=== PATIENT | female | born 1970 | race Asian ===

== ENCOUNTER 2020-04-16 14:24 | Outpatient (REF) | payer OTHER, SELFPAY ==
[2020-04-16 14:44] LABS: COVID-19 Test Negative (Negative)
== END 2020-04-16 14:25 | disposition home or self-care (01) ==
LOC: HO.LAB 14:24
PROVIDERS: Visit Provider Internal Medicine
DX: Z20.828 Contact with and (suspected) exposure to other viral communicable diseases (principal)
CPT/HCPCS: 87635

== ENCOUNTER 2020-08-03 13:20 | Emergency (ER) | payer OTHER, SELFPAY ==
[2020-08-03 13:50] VITALS: BP 187/91; PULSE 56; RESP 18; TEMP 36.7; O2SAT 98; BMI 38.7
--- NOTE | 2020-08-03 13:59 | ECG_ITS ---
Test Reason : HIGH BP Blood Pressure : / mmHG Vent. Rate : 063 BPM Atrial Rate : 063 BPM P-R Int : 224 ms QRS Dur : 074 ms QT Int : 420 ms P-R-T Axes : 063 045 039 degrees QTc Int : 429 ms Sinus rhythm with 1st degree A-V block Possible Left atrial enlargement Borderline ECG No previous ECGs available Referred By: Tiffany Goodwin Electronically Signed By:QASIM TERRY MD
--- NOTE | 2020-08-03 14:02 | ED_ITS ---
HPI - General Adult General Chief complaint: General Medical Stated complaint: hi bp Time Seen by Provider: 08/03/20 13:53 Source: patient Mode of arrival: ambulatory Limitations: no limitations History of Present Illness HPI narrative: 50 yo female with HTN - on losartan 50mg, HCTZ 12.5mg used to be on 25mg but loss weight has gained some back last night noted that she felt some head pressure a little foggy but no CP/SOB - BP checked today and it was in 180s no other new medications/supplements complaint: HTN Onset (ago): day(s) (1) Location: head Radiation: non-radiation Severity: mild Quality: dull and constant Pain Consistency: constant Relieving factors: none Exacerbating factors: none Associated symptoms: denies other symptoms Treatments prior to arrival: none Related Data Previous Rx's Medication Instructions Recorded hydrochlorothiazide 12.5 mg tablet 12.5 mg PO DAILY 90 Days #90 tab 06/14/20 hydrochlorothiazide 25 mg PO DAILY #30 tab 08/03/20 Allergies Allergy/AdvReac Type Severity Reaction Status Date / Time lisinopril Allergy Unknown dry cough Verified 02/20/20 00:00 Review of Systems Review of Systems: Constitutional : No Fever, No Chills, No Fatigue ENT/Mouth : No sore throat, No Rhinorrhea Eyes: No Eye Pain, No Swelling, No Redness Cardiovascular : No Chest Pain, No SOB, No Dyspnea on Exertion Respiratory : No Cough, No Sputum Gastrointestinal : No Nausea, No Vomiting, No Diarrhea, No abdominal Pain Genitourinary : No Dysuria, No Urinary Frequency, No Hematuria, Musculoskeletal : No joint pain, No Myalgias, No Joint Swelling Skin : No Skin Lesions, No rash Neuro : No Weakness, No Numbness, No Dizziness, positive Headache All other systems reviewed and are negative [facility] Past Medical History Attestation statement: The following information was validated with the patient. Medical History High blood pressure Social History Social History (Updated 08/03/20 @ 14:11 by Tiffany Goodwin DO) Smoking Status: Never smoker Advance Directives: No Advance Directives Information Provided: Yes Physical Exam Vital Signs: Vital Signs: Last Vital Signs Temp 98.1 F 08/03/20 13:50 Pulse 62 02/01/21 15:51 Resp 16 08/03/20 15:51 BP 165/95 H 08/03/20 15:51 Pulse Ox 98 08/03/20 15:51 Body Mass Index 38.7 Appearance: Alert. Oriented X3. No acute distress. Eyes: Pupils equal, round and reactive to light. ENT: Pharynx normal. Neck: Normal inspection. Neck supple. CVS: Normal heart rate and rhythm. Pulses normal. Respiratory: No respiratory distress. Breath sounds normal. Abdomen: Soft and nontender. Skin: Skin warm and dry. Normal skin color. Normal skin turgor. Extremities: No lower extremity edema. No calf ttp Neuro: Oriented X 3. No motor deficit. No sensory deficit. steady gait, no drift Course Course Course Narrative: BP 165/95 feels better stable for DC Medical Decision Making MDM Narrative Medical decision making narrative: 50 yo female with HTN compliant with medications has a dull headache but no focal deficits not toxic, will obtain EKG, kidney function - if stable will need to increase her HCTZ back to 25mg daily until BP maintained and she sees her PCP, no evidence of end organ dysfunction Lab Data Result diagrams: 08/03/20 14:25 08/03/20 14:25 Labs: Lab Results 08/03/20 08/03/20 Range/Units 14:25 14:25 WBC 7.7 (4.8-10.8) X10*3/uL RBC 4.88 (4.20-5.50) X10*6/uL Hgb 13.7 (12.0-16.0) g/dl Hct 42.1 (37-47) % MCV 86.3 (80-98) fL MCH 28.1 (27.0-33.0) pg MCHC 32.5 (31.0-35.0) g/dl RDW 12.6 (11.0-16.0) % Plt Count 324 (160-400) X10*3/uL MPV 10.3 (9.4-12.3) fL Immature Gran % (Auto) 0.4 (0.0-0.4) % Neut % (Auto) 48.4 (45-73) % Lymph % (Auto) 38.7 (20-40) % Hughes % (Auto) 7.7 (2-11) % Eos % (Auto) 3.4 (0-4) % Baso % (Auto) 1.4 (0-2) % Lymph # (Auto) 3.0 (1.2-4.9) X10*3/uL Hughes # (Auto) 0.6 (0.1-1.2) X10*3/uL Eos # (Auto) 0.3 (0.0-0.4) X10*3/uL Baso # (Auto) 0.1 (0.0-0.2) X10*3/uL Abs Immat Gran (auto) 0.03 (0.00-0.03) X10*3/uL Absolute Neuts (auto) 3.7 (2.0-8.3) X10*3/uL Absolute Nucleated RBC 0.000 (0.0-0.012) X10*3/uL Nucleated RBC % (auto) 0.0 (0.0-0.2) /100WBC Sodium 138 (135-145) mmol/L Potassium 4.3 (3.3-5.1) mmol/L Chloride 103 (96-108) mmol/L Carbon Dioxide 29 (22-29) mmol/L Anion Gap 10 L (12-20) BUN 13 (9-16) mg/dL Creatinine 0.70 (0.5-1.4) mg/dL Estim Creat Clear Calc 79.7 Estimated GFR > 60 Random Glucose 108 (60-115) mg/dL Calcium 9.0 (8.4-10.2) mg/dL ECG Data Attestation: I personally reviewed and interpreted this ECG as follows: Interpretation: Rate: 63 Rhythm: NSR 1st degree AVB [place]: normal Normal P waves. Normal LOC. Normal QRS complex. ST T wave : normal no GILMAR qTC: normal prior studies: no acute ischemia The study has been interpreted contemporaneously by me. . Discharge Plan Discharge Clinical Impression: HTN (hypertension) Patient Disposition: Home, Self-Care Instructions: Chronic Hypertension (ED) Additional Instructions: return to ED for any worsening symptoms or concerns Prescriptions: New hydrochlorothiazide 25 mg tablet 25 mg PO DAILY Qty: 30 RF: 0 No Action hydrochlorothiazide 12.5 mg tablet 12.5 mg PO DAILY 90 Days Qty: 90 RF: 3 Referrals: Eve Larsen MD [Primary Care Provider] - 2 days (if not better) Stand Alone Forms: Work/School Release
[2020-08-03 14:41] LABS: MANUAL DIFF FLAG NO
[2020-08-03 14:42] LABS: Basophils Absolute Auto 0.1 X10*3/uL (0.0-0.2); Basophils Percent Auto 1.4 % (0-2); Eosinophils Absolute Auto 0.3 X10*3/uL (0.0-0.4); Eosinophils Percent Auto 3.4 % (0-4); Hematocrit 42.1 % (37-47); Hemoglobin 13.7 g/dl (12.0-16.0); Imm Gran Abs Auto 0.03 X10*3/uL (0.00-0.03); Imm Gran Pct Auto 0.4 % (0.0-0.4); Lymphocytes Percent Auto 38.7 % (20-40); Mean Corpuscular HGB Conc 32.5 g/dl (31.0-35.0); Mean Corpuscular Hemoglobin 28.1 pg (27.0-33.0); Mean Corpuscular Volume 86.3 fL (80-98); Mean Platelet Volume 10.3 fL (9.4-12.3); Monocytes Absolute Auto 0.6 X10*3/uL (0.1-1.2); Monocytes Percent Auto 7.7 % (2-11); Neutrophils Absolute Auto 3.7 X10*3/uL (2.0-8.3); Neutrophils Percent Auto 48.4 % (45-73); Platelet Count 324 X10*3/uL (160-400); Red Blood Count 4.88 X10*6/uL (4.20-5.50); Red Cell Distribution Width 12.6 % (11.0-16.0); White Blood Count 7.7 X10*3/uL (4.8-10.8)
[2020-08-03 15:06] LABS: Anion Gap 10 (12-20); Blood Urea Nitrogen 13 mg/dL (9-16); Carbon Dioxide 29 mmol/L (22-29); Chloride 103 mmol/L (96-108); Creatinine Clr Calc Pharmacy 79.7; Estimated Glomerular Filt Rate > 60; Glucose Random 108 mg/dL (60-115); Potassium 4.3 mmol/L (3.3-5.1); Sodium 138 mmol/L (135-145)
[2020-08-03] MEDS: hydroCHLOROthiazide 12.5 MG TABLET PO (15:17)
[2020-08-03 15:51] VITALS: BP 165/95; PULSE 62; RESP 16; O2SAT 98
== END 2020-08-03 16:02 | disposition home or self-care (01) ==
PROVIDERS: Emergency Provider Emergency Medicine; PCP Internal Medicine
DX: I10 Essential (primary) hypertension (principal)
CPT/HCPCS: 36415; 80048; 85025; 93005; 99283

== ENCOUNTER 2020-09-10 06:24 | Outpatient (REF) | payer OTHER, SELFPAY ==
[2020-09-10 08:07] LABS: Alanine Aminotransferase 11 U/L (0-31); Albumin Level 3.9 g/dL (3.5-5.0); Alkaline Phosphatase 49 U/L (39-117); Anion Gap 12 (12-20); Aspartate Amino Transferase 15 U/L (5-31); Bilirubin Total 0.8 mg/dL (0.0-1.0); Blood Urea Nitrogen 16 mg/dL (9-16); Calcium 8.9 mg/dL (8.4-10.2); Carbon Dioxide 29 mmol/L (22-29); Chloride 102 mmol/L (96-108); Cholesterol 221 mg/dL; Estimated Glomerular Filt Rate > 60; Glucose Fasting 96 mg/dL (60-99); HDL Cholesterol 49 mg/dL; LDL Cholesterol Calculated 128 mg/dl; Potassium 3.4 mmol/L (3.3-5.1); Sodium 140 mmol/L (135-145); Total Protein 6.9 g/dL (6.5-8.0); Triglycerides 224 mg/dL
== END 2020-09-10 06:25 | disposition home or self-care (01) ==
LOC: HO.LAB 06:24
PROVIDERS: PCP Internal Medicine; Visit Provider Internal Medicine
DX: I10 Essential (primary) hypertension (principal); E78.5 Hyperlipidemia, unspecified
CPT/HCPCS: 36415; 80053; 80061

== ENCOUNTER 2021-01-05 13:23 | Outpatient (REF) | payer OTHER, SELFPAY ==
--- NOTE | ~2021-01-05 | MM_ITS ---
EXAMINATION: MM SCREENING DIGITAL BREAST TOMOSYNTHESIS, BILATERAL CLINICAL INFORMATION: Screening. Asymptomatic. The lifetime risk of breast cancer based on the Tyrer-Cuzick Model is 10.6%. COMPARISON: Mammography: December 31, 2019 and studies dating back to March 04, 2014 TECHNIQUE: Digital breast tomosynthesis is performed in both the craniocaudal and mediolateral oblique views along with computer-aided detection (CAD). Synthesized 2D images are generated from the tomosynthesis. FINDINGS: There are scattered areas of fibroglandular density (ACR BI-RADS breast composition Category b). There are no significant masses, abnormal calcifications, or other abnormalities. MM/MM tomosynthesis screening BI IMPRESSION: There are no significant changes from prior study. ASSESSMENT: BI-RADS 1: Negative RECOMMENDATION: Routine annual mammography screening. This patient's information was entered into a reminder system with a target due date for their next mammogram.
== END 2021-01-05 13:24 | disposition home or self-care (01) ==
LOC: HO.MAMMO 13:23
PROVIDERS: PCP Internal Medicine; Visit Provider Internal Medicine
DX: Z12.31 Encounter for screening mammogram for malignant neoplasm of breast (principal)
CPT/HCPCS: 77063; 77067

== ENCOUNTER 2021-01-15 06:20 | Outpatient (REF) | payer OTHER, SELFPAY ==
--- NOTE | 2021-01-15 06:40 | ECG_ITS ---
Test Reason : PRE OP Blood Pressure : / mmHG Vent. Rate : 060 BPM Atrial Rate : 060 BPM P-R Int : 232 ms QRS Dur : 086 ms QT Int : 428 ms P-R-T Axes : 055 036 044 degrees QTc Int : 428 ms Sinus rhythm with 1st degree A-V block Otherwise normal ECG When compared with ECG of 03-AUG-2020 14:17, No significant change was found Referred By: Eve Yousif Electronically Signed By:Jung Corcoran
[2021-01-15 06:43] LABS: MANUAL DIFF FLAG NO
[2021-01-15 06:50] LABS: Basophils Absolute Auto 0.1 X10*3/uL (0.0-0.2); Basophils Percent Auto 1.1 % (0-2); Eosinophils Absolute Auto 0.2 X10*3/uL (0.0-0.4); Eosinophils Percent Auto 2.8 % (0-4); Hematocrit 41.3 % (37-47); Hemoglobin 13.5 g/dl (12.0-16.0); Imm Gran Abs Auto 0.03 X10*3/uL (0.00-0.03); Imm Gran Pct Auto 0.4 % (0.0-0.4); Lymphocytes Absolute Auto 2.2 X10*3/uL (1.2-4.9); Lymphocytes Percent Auto 30.1 % (20-40); Mean Corpuscular HGB Conc 32.7 g/dl (31.0-35.0); Mean Corpuscular Hemoglobin 27.7 pg (27.0-33.0); Mean Corpuscular Volume 84.8 fL (80-98); Mean Platelet Volume 9.8 fL (9.4-12.3); Monocytes Absolute Auto 0.7 X10*3/uL (0.1-1.2); Monocytes Percent Auto 9.6 % (2-11); Neutrophils Absolute Auto 4.1 X10*3/uL (2.0-8.3); Platelet Count 318 X10*3/uL (160-400); Red Blood Count 4.87 X10*6/uL (4.20-5.50); Red Cell Distribution Width 13.5 % (11.0-16.0); White Blood Count 7.4 X10*3/uL (4.8-10.8)
[2021-01-15 07:31] LABS: Alanine Aminotransferase 14 U/L (0-31); Albumin Level 3.7 g/dL (3.5-5.0); Alkaline Phosphatase 50 U/L (39-117); Anion Gap 11 (12-20); Aspartate Amino Transferase 16 U/L (5-31); Bilirubin Total 0.7 mg/dL (0.0-1.0); Blood Urea Nitrogen 14 mg/dL (9-16); Calcium 9.2 mg/dL (8.4-10.2); Carbon Dioxide 28 mmol/L (22-29); Chloride 107 mmol/L (96-108); Cholesterol 184 mg/dL; Estimated Glomerular Filt Rate > 60; Glucose Fasting 96 mg/dL (60-99); HDL Cholesterol 42 mg/dL; LDL Cholesterol Calculated 101 mg/dl; Potassium 3.9 mmol/L (3.3-5.1); Sodium 142 mmol/L (135-145); Total Protein 6.8 g/dL (6.5-8.0); Triglycerides 205 mg/dL
== END 2021-01-15 06:21 | disposition home or self-care (01) ==
LOC: HO.LAB 06:20
PROVIDERS: Visit Provider Internal Medicine
DX: Z01.810 Encounter for preprocedural cardiovascular examination (principal); E78.2 Mixed hyperlipidemia; D64.9 Anemia, unspecified
CPT/HCPCS: 36415; 80053; 80061; 85025; 93005

== ENCOUNTER → 2021-06-15 09:27 | Outpatient (BNVA) | payer OTHER, SELFPAY | PROVIDERS: PCP Internal Medicine; Visit Provider Advanced Practice Midwife ==

== ENCOUNTER 2021-07-03 08:41 | Outpatient (REF) | payer OTHER, SELFPAY ==
[2021-07-03 09:47] LABS: Binax Internal Control QC Valid; Binax Lot number: 9864; Binax Now Covid-19 Ag Negative (Negative)
== END 2021-07-03 08:42 | disposition home or self-care (01) ==
LOC: HO.LAB 08:41
PROVIDERS: Visit Provider Internal Medicine
DX: Z20.822 Contact with and (suspected) exposure to COVID-19 (principal)
CPT/HCPCS: 36415; C9803

== ENCOUNTER 2021-12-03 06:08 | Outpatient (REF) | payer OTHER, SELFPAY ==
[2021-12-03 07:49] LABS: Alanine Aminotransferase 26 U/L (0-31); Albumin Level 3.8 g/dL (3.5-5.0); Alkaline Phosphatase 56 U/L (39-117); Anion Gap 13 (12-20); Aspartate Amino Transferase 19 U/L (5-31); Bilirubin Total 0.4 mg/dL (0.0-1.0); Blood Urea Nitrogen 17 mg/dL (9-16); Calcium 9.5 mg/dL (8.4-10.2); Carbon Dioxide 25 mmol/L (22-29); Chloride 104 mmol/L (96-108); Cholesterol 206 mg/dL; Estimated Glomerular Filt Rate > 60; Glucose Fasting 107 mg/dL (60-99); HDL Cholesterol 39 mg/dL; LDL Cholesterol Calculated 131 mg/dl; Potassium 4.1 mmol/L (3.3-5.1); Sodium 138 mmol/L (135-145); Total Protein 7.2 g/dL (6.5-8.0); Triglycerides 181 mg/dL
[2021-12-03 08:12] LABS: Thyroid Stimulating Hormone 4.07 uIU/mL (0.32-4.0)
[2021-12-07 14:56] LABS: Vitamin D 25-OH, D2 <4 ng/mL; Vitamin D 25-OH, D3 40 ng/mL; Vitamin D 25-OH, Total 40 ng/mL (30-100)
== END 2021-12-03 06:09 | disposition home or self-care (01) ==
LOC: HO.LAB 06:08
PROVIDERS: PCP Internal Medicine; Visit Provider Internal Medicine
DX: E55.9 Vitamin D deficiency, unspecified (principal); E66.9 Obesity, unspecified; E78.2 Mixed hyperlipidemia
CPT/HCPCS: 36415; 80053; 80061; 82306; 84443

== ENCOUNTER 2022-01-06 13:35 | Outpatient (REF) | payer OTHER, SELFPAY ==
--- NOTE | ~2022-01-06 | MM_ITS ---
EXAMINATION: MM SCREENING DIGITAL BREAST TOMOSYNTHESIS, BILATERAL CLINICAL INFORMATION: Screening. Asymptomatic. The lifetime risk of breast cancer based on the Tyrer-Cuzick Model is 15%. COMPARISON: Mammography: 01/05/2021, 12/31/2019, 11/01/2018 TECHNIQUE: Digital breast tomosynthesis is performed in both the craniocaudal and mediolateral oblique views along with computer-aided detection (CAD). Synthesized 2D images are generated from the tomosynthesis. FINDINGS: There are scattered areas of fibroglandular density (ACR BI-RADS breast composition Category b). There are no significant masses, abnormal calcifications, or other abnormalities. Parenchymal pattern is similar to prior exams. There is fine fibronodular pattern similar to prior studies. No developing density. The axilla and skin contours are unremarkable. MM/MM tomosynthesis screening BI IMPRESSION: No mammographic evidence of malignancy. ASSESSMENT: BI-RADS 2: Benign RECOMMENDATION: Routine annual mammography screening. This patient's information was entered into a reminder system with a target due date for their next mammogram.
== END 2022-01-06 13:36 | disposition home or self-care (01) ==
LOC: HO.MAMMO 13:35
PROVIDERS: Visit Provider Internal Medicine
DX: Z12.31 Encounter for screening mammogram for malignant neoplasm of breast (principal)
CPT/HCPCS: 77063; 77067

== ENCOUNTER 2022-04-21 06:21 | Outpatient (REF) | payer OTHER, SELFPAY ==
[2022-04-21 06:54] LABS: MANUAL DIFF FLAG NO
[2022-04-21 07:32] LABS: Basophils Absolute Auto 0.1 X10*3/uL (0.0-0.2); Basophils Percent Auto 1.1 % (0-2); Eosinophils Absolute Auto 0.2 X10*3/uL (0.0-0.4); Eosinophils Percent Auto 2.6 % (0-4); Hematocrit 43.4 % (37.0-47.0); Hemoglobin 14.4 g/dl (12.0-16.0); Imm Gran Abs Auto 0.05 X10*3/uL (0.00-0.03); Imm Gran Pct Auto 0.5 % (0.0-0.4); Lymphocytes Absolute Auto 2.6 X10*3/uL (1.2-4.9); Lymphocytes Percent Auto 28.1 % (20-40); Mean Corpuscular HGB Conc 33.2 g/dl (31.0-35.0); Mean Corpuscular Hemoglobin 28.1 pg (27.0-33.0); Mean Corpuscular Volume 84.6 fL (80.0-98.0); Mean Platelet Volume 9.9 fL (9.4-12.3); Monocytes Absolute Auto 0.7 X10*3/uL (0.1-1.2); Monocytes Percent Auto 7.3 % (2-11); Neutrophils Absolute Auto 5.6 x10*3/uL (2.0-8.3); Neutrophils Percent Auto 60.4 % (45-73); Platelet Count 310 X10*3/uL (160-400); Red Blood Count 5.13 X10*6/uL (4.20-5.50); White Blood Count 9.3 X10*3/uL (4.8-10.8)
[2022-04-21 07:58] LABS: Alanine Aminotransferase 21 U/L (0-31); Albumin Level 3.8 g/dL (3.5-5.0); Alkaline Phosphatase 54 U/L (39-117); Anion Gap 13 (12-20); Aspartate Amino Transferase 16 U/L (5-31); Bilirubin Total 0.6 mg/dL (0.0-1.0); Blood Urea Nitrogen 15 mg/dL (9-16); Calcium 9.4 mg/dL (8.4-10.2); Carbon Dioxide 28 mmol/L (22-29); Chloride 104 mmol/L (96-108); Cholesterol 217 mg/dL; Estimated Glomerular Filt Rate > 60; Glucose Fasting 107 mg/dL (60-99); HDL Cholesterol 46 mg/dL; LDL Cholesterol Calculated 138 mg/dl; Potassium 4.1 mmol/L (3.3-5.1); Sodium 141 mmol/L (135-145); Total Protein 6.9 g/dL (6.5-8.0); Triglycerides 167 mg/dL
[2022-04-23 06:12] LABS: Thyroid Peroxidase Antibodies <1 IU/mL (<9)
[2022-04-25 13:03] LABS: Thyroglobulin Antibodies 12 IU/mL (< or = 1)
== END 2022-04-21 06:22 | disposition home or self-care (01) ==
LOC: HO.LAB 06:21
PROVIDERS: PCP Internal Medicine; Visit Provider Internal Medicine
DX: N92.1 Excessive and frequent menstruation with irregular cycle (principal); R79.89 Other specified abnormal findings of blood chemistry; E78.2 Mixed hyperlipidemia
CPT/HCPCS: 36415; 80053; 80061; 84439; 84443; 85025; 86376; 86800

== ENCOUNTER 2022-08-09 06:33 | Outpatient (REF) | payer OTHER, SELFPAY ==
[2022-08-09 08:12] LABS: Alanine Aminotransferase 17 U/L (0-31); Albumin Level 3.7 g/dL (3.5-5.0); Alkaline Phosphatase 52 U/L (39-117); Anion Gap 17 (12-20); Aspartate Amino Transferase 15 U/L (5-31); Bilirubin Total 0.8 mg/dL (0.0-1.0); Blood Urea Nitrogen 18 mg/dL (9-16); Calcium 9.3 mg/dL (8.4-10.2); Carbon Dioxide 23 mmol/L (22-29); Chloride 105 mmol/L (96-108); Cholesterol 199 mg/dL; Estimated Glomerular Filt Rate > 60; Glucose Fasting 100 mg/dL (60-99); HDL Cholesterol 42 mg/dL; LDL Cholesterol Calculated 122 mg/dl; Potassium 3.9 mmol/L (3.3-5.1); Sodium 141 mmol/L (135-145); Total Protein 6.6 g/dL (6.5-8.0); Triglycerides 176 mg/dL
[2022-08-09 08:28] LABS: Free T4 (Free Thyroxine) 1.09 ng/dL (0.71-1.85); Thyroid Stimulating Hormone 3.67 uIU/mL (0.32-4.0)
== END 2022-08-09 06:34 | disposition home or self-care (01) ==
LOC: HO.LAB 06:33
PROVIDERS: PCP Internal Medicine; Visit Provider Internal Medicine
DX: R79.89 Other specified abnormal findings of blood chemistry (principal); E78.5 Hyperlipidemia, unspecified; I10 Essential (primary) hypertension
CPT/HCPCS: 36415; 80053; 80061; 84439; 84443

== ENCOUNTER 2022-08-19 08:12 | Outpatient (REF) | payer OTHER, SELFPAY ==
[2022-08-20 12:25] LABS: BV Int Neg Control Negative (Negative); BV Int Pos Control Positive (Positive)
== END 2022-08-19 08:13 | disposition home or self-care (01) ==
LOC: HO.LNP 08:12
PROVIDERS: PCP Internal Medicine; Visit Provider Advanced Practice Midwife
DX: Z01.419 Encounter for gynecological examination (general) (routine) without abnormal findings (principal); N90.89 Other specified noninflammatory disorders of vulva and perineum
CPT/HCPCS: 87480; 87510; 87660

== ENCOUNTER 2023-01-18 10:35 | Outpatient (REF) | payer OTHER, SELFPAY ==
--- NOTE | ~2023-01-18 | MM_ITS ---
EXAMINATION: MM SCREENING DIGITAL BREAST TOMOSYNTHESIS, BILATERAL CLINICAL INFORMATION: Screening. Asymptomatic. The lifetime risk of breast cancer based on the Tyrer-Cuzick Model is 16.3%. COMPARISON: Mammography: 01/06/2022, 01/05/2021, 12/31/2019, and dating back to 2018. TECHNIQUE: Digital breast tomosynthesis is performed in both the craniocaudal and mediolateral oblique views along with computer-aided detection (CAD). Synthesized 2D images are generated from the tomosynthesis. FINDINGS: There are scattered areas of fibroglandular density (ACR BI-RADS breast composition Category b). There are no suspicious masses, suspicious grouped calcifications, or areas of parenchymal distortion. The parenchymal pattern is unchanged from prior exams. MM/MM tomosynthesis screening BI IMPRESSION: No mammographic evidence of malignancy. ASSESSMENT: BI-RADS BI-RADS 1 - Negative RECOMMENDATION: Routine annual mammography screening. 1 year F/U This examination should not preclude the clinical evaluation of a suspicious palpable abnormality. This patient's information was entered into a reminder system with a target due date for their next mammogram.
== END 2023-01-18 10:36 | disposition home or self-care (01) ==
LOC: HO.MAMMO 10:35
PROVIDERS: PCP Internal Medicine; Visit Provider Internal Medicine
DX: Z12.31 Encounter for screening mammogram for malignant neoplasm of breast (principal)
CPT/HCPCS: 77063; 77067

== ENCOUNTER → 2023-01-18 10:45 | Outpatient (BNV) | payer OTHER, SELFPAY | PROVIDERS: PCP Internal Medicine; Visit Provider Radiology Diagnostic Radiology | DX: Z12.31 Encounter for screening mammogram for malignant neoplasm of breast (principal) | CPT/HCPCS: 77063; 77067 ==

== ENCOUNTER 2023-02-23 15:33 | Outpatient (AMB) | payer OTHER, SELFPAY ==
[2023-02-23 15:38] VITALS: BP 126/80; BMI 40.4
--- NOTE | 2023-02-23 15:38 | A.OFFPC_ITS ---
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 Accompanied by: Self / Same As Patient Allergies lisinopril Allergy (Intermediate, Verified 02/23/23 15:47) dry cough Medication List - Last Reconciled 02/23/23 by Eve Yousif MD clotrimazole-betamethasone 1-0.05 % 1 appl topical BID PRN 7 days hydrochlorothiazide 25 mg PO DAILY 90 days losartan 75 mg (1.5 x 50 mg) PO DAILY 90 days Tobacco use date assessed: 08/17/22 Dental Screening Dental Screen Date: 02/23/23 Did you have a dental visit in the last 12 months?: Yes Did you have a dental problem in the last 6 months where you did not have access to dental care?: No Was dental information given to patient?: Patient has dentist HPI HPI Comments History of Present Illness Details This is a 53-year-old female with hypertension morbid obesity that comes today for follow-up her conditions. Blood pressure stable. She is morbidly obese with a BMI of 40.4 and was advised to diet and exercise to reach BMI goal less than 30. Denies any chest pain or shortness of breath. 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 Griffin Guillermo, Joann Rice, Prem Ram and colleagues, with an educational melissa from [email or web address]. Review of Systems Const All systems reviewed & are unremarkable except as noted in HPI and below Eyes Reports no additional complaints, Denies change in vision and Denies other visual disturbances Card Denies chest pain at rest, Denies chest pain with activity, Denies edema, Denies irregular heart rhythm, Denies claudication, Denies dyspnea, Denies dyspnea on exertion, Denies orthopnea, Denies paroxysmal nocturnal dyspnea and Denies slow heart rate Resp Denies cough, Denies dyspnea and Denies dyspnea on exertion GI Denies abdominal pain, Denies change in bowel habits, Denies excessive flatus, Denies nausea and Denies vomiting Denies urinary incontinence, Denies urinary hesitancy and Denies urinary urgency Musc Denies abnormal gait, Denies atrophy, Denies deformity and Denies limited range of motion Skin/Breast Denies bleeding lesions, Denies changing lesions and Denies rash Neuro Denies abnormal gait and Denies lack of coordination Physical exam (Primary Care) Vital Signs: Last Vital Signs BP 126/80 02/23/23 15:38 BMI result Body Mass Index 40.4 Tobacco/Smoking Status: Tobacco use Status Tobacco use date assessed 08/17/22 02/23/23 15:42 Patient Tobacco Use Status Never used Tobacco 02/23/23 15:42 e-Cigarette/Vaping Use Never Used 02/23/23 15:42 Thrive Assessment: Date of Thrive Assessment Date Thrive assessed 08/17/22 02/23/23 15:42 Eyes General: appearance normal, both eyes and all related structures Eyelids: Yes eyelids normal Conjunctivae: conjunctivae normal Neck Neck: Yes normal visual inspection and Yes supple Resp Effort & Inspection: normal respiratory effort Auscultation: clear to auscultation bilaterally Cardio Jugular venous distension: no JVD Rate: regular rate Rhythm: regular rhythm Heart sounds: S1 normal heart sound present and S2 normal heart sound present Extrem General: Yes full ROM Assessment and Plan Assessment & Plan (1) Essential hypertension: Code(s): I10 - Essential (primary) hypertension Plan: Continue losartan hydrochlorothiazide. Blood pressure goal is equal or less than 130/80. (2) Morbid (severe) obesity due to excess calories: Code(s): E66.01 - Morbid (severe) obesity due to excess calories Plan: Start diet and exercise. BMI goal is less than 30. Orders: Orders Comprehensive [place]. Panel Fast 7 Months I10 - Essential (primary) hypertension Lipid Panel 7 Months E78.5 - Hyperlipidemia, unspecified Free T4 (Free Thyroxine) 7 Months R79.89 - Other specified abnormal findings of blood chemistry Thyroid Stimulating Hormone 7 Months R79.89 - Other specified abnormal findings of blood chemistry Coding Level of Care Code Est Pt Level 3 (83619) Diagnoses Essential hypertension I10 Morbid (severe) obesity due to excess calories E66.01 Time Spent (min) 17
== END 2023-02-23 15:52 | disposition home or self-care (01) ==
PROVIDERS: PCP Internal Medicine; Visit Provider Internal Medicine
DX: I10 Essential (primary) hypertension (principal); E66.01 Morbid (severe) obesity due to excess calories; Z68.41 Body mass index [BMI] 40.0-44.9, adult
CPT/HCPCS: 99213

== ENCOUNTER 2023-08-16 06:19 | Outpatient (REF) | payer OTHER, SELFPAY ==
[2023-08-16 08:48] LABS: Alanine Aminotransferase 13 U/L (0-31); Albumin Level 3.8 g/dL (3.5-5.0); Alkaline Phosphatase 61 U/L (39-117); Anion Gap 12 (12-20); Aspartate Amino Transferase 16 U/L (5-31); Bilirubin Total 0.6 mg/dL (0.0-1.0); Blood Urea Nitrogen 18 mg/dL (9-16); Calcium 9.5 mg/dL (8.4-10.2); Carbon Dioxide 26 mmol/L (22-29); Chloride 107 mmol/L (96-108); Cholesterol 226 mg/dL (<200); Estimated Glomerular Filt Rate > 60; Glucose Fasting 92 mg/dL (60-99); HDL Cholesterol 50 mg/dL (>40); LDL Cholesterol Calculated 143 mg/dL (<100); Potassium 3.6 mmol/L (3.3-5.1); Sodium 141 mmol/L (135-145); Total Protein 7.6 g/dL (6.5-8.0); Triglycerides 169 mg/dL (<150)
[2023-08-16 08:54] LABS: Free T4 (Free Thyroxine) 1.06 ng/dL (0.71-1.85)
== END 2023-08-16 06:20 | disposition home or self-care (01) ==
LOC: HO.LAB 06:19
PROVIDERS: PCP Internal Medicine; Visit Provider Internal Medicine
DX: R79.89 Other specified abnormal findings of blood chemistry (principal); E78.5 Hyperlipidemia, unspecified; I10 Essential (primary) hypertension
CPT/HCPCS: 36415; 80053; 80061; 84439; 84443

== ENCOUNTER 2023-09-05 09:23 | Outpatient (AMB) | payer OTHER, SELFPAY ==
[2023-09-05 09:26] VITALS: BP 124/82; BMI 39.0
--- NOTE | 2023-09-05 09:26 | A.OFFPC_ITS ---
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 Accompanied by: Self / Same As Patient Allergies lisinopril Allergy (Intermediate, Verified 09/05/23 09:35) dry cough Medication List - Last Reconciled 09/05/23 by Eve Yousif MD clotrimazole-betamethasone 1-0.05 % 1 appl topical BID PRN 7 days hydrochlorothiazide 25 mg PO DAILY 90 days losartan 75 mg (1.5 x 50 mg) PO DAILY 90 days Tobacco use date assessed: 09/05/23 Dental Screening Dental Screen Date: 09/05/23 Did you have a dental visit in the last 12 months?: Yes Did you have a dental problem in the last 6 months where you did not have access to dental care?: No Was dental information given to patient?: Patient has dentist HPI HPI Comments History of Present Illness Details This is a 53-year-old female that comes for her physical exam. Last mammogram was December 2022. Last Pap smear was 2019. Last colonoscopy was 2018 and was normal. Labs were discussed and she has elevated cholesterol but her Davidson risk score is 2.1% of having a heart attack or stroke in the next 10 years. No chest pain or shortness of breath. [facility] Medical History (Updated 09/05/23 @ 09:45 by Eve Yousif MD) Morbid (severe) obesity due to excess calories COVID-19 Elevated TSH Obesity (BMI 30-39.9) Sweat gland carcinoma Neoplasm Mixed hyperlipidemia Essential hypertension Surgical History Status post Mohs surgery H/O arthroscopic knee surgery H/O skin graft Family History Father Stroke Heart disease Mother Liver cancer Diabetes mellitus Social History Household Members: Significant Other Housing: House Alcohol intake: never Patient Tobacco Use Status: Never used Tobacco e-Cigarette/Vaping Use: Never Used Second Hand Smoke Exposure: No service: No Current occupational status: employed 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 1. Little interest or pleasure in doing things: not at all 2. Feeling down, depressed, or hopeless: not at all 3. Trouble falling or staying asleep, or sleeping too much: not at all 4. Feeling tired or having little energy: not at all 5. Poor appetite or overeating: not at all 6. Feeling bad about yourself - or that you are a failure or have let yourself or your family down: not at all 7. Trouble concentrating on things, such as reading the newspaper or watching television: not at all 8. Moving or speaking so slowly that other people could have noticed. Or the opposite - being so fidgety or restless that you have been moving around a lot more than usual: not at all 9. Thoughts that you would be better off or of hurting yourself in some way: not at all Total score: 0 Depression Screening Interpretation: Negative Depression Screening Done: Yes 09251 - PHQ-9 Billing: Yes Source: Developed by Drs. Griffin Guillermo, Joann Rice, Prem Ram and colleagues, with an educational melissa from [employer]. Thrive Questionnaire Date Thrive assessed: 09/05/23 I am a: Patient What is your living situation today?: I have a steady place to live Within the past 12 months, did the food you bought not last and you didn't have the money to get more?: Never true Within the past 12 months, did you worry whether your food would run out before you got money to buy more?: Never true Do you have trouble paying for medicines?: No Do you have trouble getting transportation to medical appointments?: No Do you have trouble paying your heating and electricity bill?: No Do you have trouble taking care of your child, family member or friend?: No Do you have trouble with day-to-day activities such as bathing, preparing meals, shopping, managing finances, etc.?: No Are you currently unemployed and looking for a job?: No Are you interested in more education?: No Please select the resources that you would like help with: None Currently or been in a relationship where the following occur: no concerns reported THRIVE Score: 0 AUDIT C Alcohol Use Questionnaire (AUDIT-C) 1. How often do you have a drink containing alcohol?: Never Total Score: 0 JALEN-7 AMB Questionnaire JALEN-7 Date JALEN - 7 assessed: 09/05/23 Feeling nervous, anxious, or on edge: 0 = Not at all Not being able to stop or control worryin = Not at all Worrying too much about different things: 0 = Not at all Trouble relaxin = Not at all Being so restless that it is hard to sit still: 0 = Not at all Becoming easily annoyed or irritable: 0 = Not at all Feeling afraid as if something awful might happen: 0 = Not at all Total JALEN-7 score (0-4 normal; 5-9 mild; 10-14 moderate; 15-21 severe): 0 Source: Developed by Drs. Griffin Guillermo, Joann Rice, Prem Ram and colleagues, with an educational melissa from [employer]. JALEN-7 Assessment Billing JALEN-7 Assessment Tool: JALEN-7 Assessment [id number] Review of Systems Const All systems reviewed & are unremarkable except as noted in HPI and below Eyes Reports no additional complaints, Denies change in vision and Denies other visual disturbances Card Denies chest pain at rest, Denies chest pain with activity, Denies edema, Denies irregular heart rhythm, Denies claudication, Denies dyspnea, Denies dyspnea on exertion, Denies orthopnea, Denies paroxysmal nocturnal dyspnea and Denies slow heart rate Resp Denies cough, Denies dyspnea and Denies dyspnea on exertion GI Denies abdominal pain, Denies change in bowel habits, Denies excessive flatus, Denies nausea and Denies vomiting Denies urinary incontinence, Denies urinary hesitancy and Denies urinary urgency Musc Denies abnormal gait, Denies atrophy, Denies deformity and Denies limited range of motion Skin/Breast Denies bleeding lesions, Denies changing lesions and Denies rash Neuro Denies abnormal gait, Denies behavioral changes, Denies confusion and Denies lack of coordination Psych Denies behavioral changes and Denies confusion Physical exam (Primary Care) Vital Signs: Last Vital Signs BP 124/82 09/05/23 09:26 BMI result Body Mass Index 39.0 Tobacco/Smoking Status: Tobacco use Status Tobacco use date assessed 09/05/23 09/05/23 09:29 Patient Tobacco Use Status Never used Tobacco 09/05/23 09:29 e-Cigarette/Vaping Use Never Used 09/05/23 09:29 PHQ-9: PHQ-9 Score PHQ-9: Total score 0 09/05/23 09:29 Depression Screening Interpretation: Negative Thrive Assessment: Date of Thrive Assessment Date Thrive assessed 09/05/23 09/05/23 09:29 Currently or been in a relationship where the following occur: no concerns reported Const General: No confusion Orientation/consciousness: patient oriented x3 and No confusion HENMT Head: Yes normal to inspection, Yes normocephalic and Yes atraumatic Ears: external ears normal Eyes General: appearance normal, both eyes and all related structures Eyelids: Yes eyelids normal Conjunctivae: conjunctivae normal Neck Neck: Yes normal visual inspection and Yes supple Resp Effort & Inspection: normal respiratory effort Auscultation: clear to auscultation bilaterally Cardio Jugular venous distension: no JVD Rate: regular rate Rhythm: regular rhythm Heart sounds: S1 normal heart sound present and S2 normal heart sound present GI Inspection: Yes normal to inspection Palpation (GI): Soft to palpation and nontender Auscultation: normal bowel sounds Skin General skin exam: no rashes or lesions noted Neuro General: patient oriented x3, no focal motor deficits and No confusion Extrem General: Yes full ROM Psych Appearance: grossly normal Assessment and Plan Assessment & Plan (1) Physical exam: Code(s): Z00.00 - Encounter for general adult medical examination without abnormal findings Plan: Repeat in a year. Coding Level of Care Code Est Pt Prev Care 40-64y(77818) Diagnoses Physical exam Z00.00 Additional Codes JALEN-7 Assessment Billing - JALEN-7 Assessment Tool: JALEN-7 Assessment 84159 ([id number]) Time Spent (min) 31
== END 2023-09-05 09:43 | disposition home or self-care (01) ==
PROVIDERS: PCP Internal Medicine; Visit Provider Internal Medicine
DX: Z00.00 Encounter for general adult medical examination without abnormal findings (principal)
CPT/HCPCS: 99396

== ENCOUNTER 2023-09-19 10:10 | Outpatient (AMB) | payer OTHER, SELFPAY ==
--- NOTE | 2023-09-19 10:20 | A.OFFVIS_ITS ---
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 She is doing well with no concerns. No regular normal menses since March, has light monthly spotting. Attempting to eat a healthy diet with calcium and vitamin D and stays active with exercise. Currently sexually active. Denies any vaginal dryness or irritation. Admits to occasional itching externally and would like a refill on her cream. STI testing offered; she declines. Last pap smear; 2019. Last mammogram; 2022. Colonoscopy is UTD. Denies any family history of ovarian or colon cancer. FH breast cancer-maternal aunt. [facility] Medical History Morbid (severe) obesity due to excess calories COVID-19 Elevated TSH Obesity (BMI 30-39.9) Sweat gland carcinoma Neoplasm Mixed hyperlipidemia Essential hypertension Surgical History Status post Mohs surgery H/O arthroscopic knee surgery H/O skin graft Family History Father Stroke Heart disease Mother Liver cancer Diabetes mellitus Maternal Aunt History of breast cancer Social History Household Members: Significant Other Housing: House Alcohol intake: never Patient Tobacco Use Status: Never used Tobacco e-Cigarette/Vaping Use: Never Used Second Hand Smoke Exposure: No service: No Current occupational status: employed 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[employer] Current occupational exposures/hazards: No Sexual orientation: Straight/Heterosexual Gender identity: Female Cognitive needs: No Hearing needs: No Vision needs: No Female Reproductive History Menstrual Age of Menarche: 7 Date of last menstrual period: 03/17/23 Total pregnancies: 0 Date of last pap smear: 02/21/20 (neg pap and hpv) Date of Mammogram: 01/18/23 (Birad 1) Review of Systems Const All systems reviewed & are unremarkable except as noted in HPI and below Reports as per HPI Eyes Reports no additional complaints ENT Reports no additional complaints Card Reports no additional complaints Resp Reports no additional complaints GI Reports as per HPI and Reports no additional complaints Reports as per HPI Musc Reports no additional complaints Skin/Breast Reports as per HPI Neuro Reports no additional complaints Psych Reports no additional complaints Endo Reports no additional complaints Mode/Lymph Reports no additional complaints Aller/Immun Reports no additional complaints Physical Exam Vital Signs: Last Vital Signs BP 108/66 09/19/23 10:28 BMI result Body Mass Index 39.9 Const General: cooperative, healthy appearing, no acute distress, well developed and alert Orientation/consciousness: patient oriented x3 HEENT Head: Yes normal to inspection Eyes General: appearance normal, both eyes and all related structures Neck Neck: Yes normal visual inspection Thyroid: Thyroid normal Chest Chest palpation & inspection: normal inspection of the chest and other (no puckering, dimpling, peau de orange, retraction, discharge, masses) Breast/axilla inspection: normal inspection of the breasts Breast/axilla palpation: normal palpation of the breasts Resp Effort & Inspection: normal respiratory effort GI Inspection: Yes normal to inspection Palpation (GI): Soft to palpation Rectal Exam - Female: deferred Other: Bilateral labia erythema, no lesions General: Yes bladder normal to palpation External Female Exam: normal external appearance and normal appearance of the urethra Speculum Exam - Vagina: normal appearance of the vagina, normal palpation and normal vaginal discharge Speculum Exam - Cervix: normal appearance of the cervix and normal palpation Bimanual exam- vagina & uterus: normal bimanual exam, normal palpation, uterine size normal, bladder normal to palpation, normal palpation and non-tender Bimanual Exam- Adnexa, other: no masses Skin General skin exam: no rashes or lesions noted Rashes: no rashes Neuro General: patient oriented x3 Cognition (Neuro): normal cognition Extrem General: Yes normal to inspection Psych Attitude: cooperative Thought process: Normal thought process present Assessment & Plan Assessment & Plan (1) Encounter for well woman exam with routine gynecological exam: Code(s): Z01.419 - Encounter for gynecological examination (general) (routine) without abnormal findings Plan Discussed: Current recommendations for pap smears per ASCCP guidelines. Breast awareness, periodic self breast exams and yearly mammogram. Maintain a healthy lifestyle, well balanced diet including Calcium 1,200 mg and Vitamin D 600 IU daily, and routine exercise. Monitor menstrual cycles, report any unscheduled bleeding, bleeding episodes <21 days apart or heavy/prolonged menstrual bleeding. Perimenopause versus menopause, no periods after 12 consecutive months. Call the office for a follow up for any concerns. Patient verbalizes understanding and agrees to the plan of care. She was given opportunity to ask questions and all questions were answered to the best of my ability. RTO in 1 year for annual bankman exam. This note is constructed using voice recognition software. While every effort has been made to ensure accuracy, emotional support teacher errors may have been included. Medications: Refilled clotrimazole-betamethasone 1-0.05 % 1 appl topical BID 7 days PRN 45 grams 0RF itching Coding Level of Care Code Est Pt Prev Care 40-64y(48705) Diagnoses Encounter for well woman exam with routine gynecological exam Z01.419
[2023-09-19 10:28] VITALS: BP 108/66; BMI 39.9
== END 2023-09-19 11:13 | disposition home or self-care (01) ==
PROVIDERS: Visit Provider Advanced Practice Midwife
DX: Z01.419 Encounter for gynecological examination (general) (routine) without abnormal findings (principal)
CPT/HCPCS: 99396

== ENCOUNTER → 2023-09-19 10:10 | Outpatient (BNVA) | payer OTHER, SELFPAY | PROVIDERS: Visit Provider Advanced Practice Midwife ==

== ENCOUNTER 2024-01-24 10:29 | Outpatient (REF) | payer OTHER, SELFPAY | END 2024-01-24 10:30 | disposition home or self-care (01) | LOC: HO.MAMMO 10:29 | PROVIDERS: PCP Physician Assistant; Visit Provider Internal Medicine | DX: Z12.31 Encounter for screening mammogram for malignant neoplasm of breast (principal) | CPT/HCPCS: 77063; 77067 ==

== ENCOUNTER → 2024-01-24 10:45 | Outpatient (BNV) | payer OTHER, SELFPAY | PROVIDERS: PCP Physician Assistant; Visit Provider Radiology Diagnostic Radiology | DX: Z12.31 Encounter for screening mammogram for malignant neoplasm of breast (principal) | CPT/HCPCS: 77063; 77067 ==

== ENCOUNTER 2024-02-07 15:16 | Outpatient (AMB) | payer OTHER, SELFPAY ==
--- NOTE | 2024-02-07 15:25 | A.OFFPC_ITS ---
Vital Signs 02/07/24 15:38 Height 4 ft 9.68 in Weight 175 lb 4 oz BMI 37.0 BP 122/84 Blood Pressure Location Lt brachial Position Sitting Respiration 16 Pulse 65 Pulse Source Pulse Oximeter Temp 98.2 F Temp Source Oral Pulse Oximetry (%) 97 Oxygen Delivery Method Room Air Intake Visit Reasons: Establish Care Intake Note: New patient visit Allergies lisinopril Allergy (Intermediate, Verified 02/07/24 15:36) dry cough Medication List - Last Reconciled 02/07/24 by Dawn Coker PA-C clotrimazole-betamethasone 1-0.05 % 1 appl topical BID PRN 7 days hydrochlorothiazide 25 mg PO DAILY 90 days losartan 75 mg (1.5 x 50 mg) PO DAILY 90 days Tobacco use date assessed: 02/07/24 Dental Screening Dental Screen Date: 02/07/24 Did you have a dental visit in the last 12 months?: Yes Did you have a dental problem in the last 6 months where you did not have access to dental care?: No Was dental information given to patient?: Patient has dentist HPI Establish Care HPI Details Patient is a 53-year-old female who presents today to establish care. She is transferring internally. CV: She has history of hypertension her blood pressure today in the office is 122/84. She is currently on losartan 75 mg and hydrochlorothiazide 25 mg daily. Her last labs did show elevated cholesterol which she states that she is going to be working on with her diet. Endo: Her main concern is her thyroid. She states that it has been underactive for the last few years and everyone in her family has some sort of thyroid disorder. She did have positive antibodies in 2021. She states that she has noticed a hard time losing weight but attributes this to perimenopause and she also has noticed that her hair thins out at times. Mammo: Up-to-date Colonoscopy: Due in 5 years. Pap: Up-to-date, last seen by [facility]oc aadc operations staff officer in August. Bone density: Never had 1 PFS Medical History Morbid (severe) obesity due to excess calories COVID-19 Elevated TSH Obesity (BMI 30-39.9) Sweat gland carcinoma Neoplasm Mixed hyperlipidemia Essential hypertension Surgical History Status post Mohs surgery H/O arthroscopic knee surgery H/O skin graft Family History Father Stroke Heart disease Mother Liver cancer Diabetes mellitus Maternal Aunt History of breast cancer Social History Household Members: Significant Other Housing: House Alcohol intake: never Patient Tobacco Use Status: Never used Tobacco e-Cigarette/Vaping Use: Never Used Second Hand Smoke Exposure: No service: No Current occupational status: employed 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 1. Little interest or pleasure in doing things: not at all 2. Feeling down, depressed, or hopeless: not at all 3. Trouble falling or staying asleep, or sleeping too much: not at all 4. Feeling tired or having little energy: not at all 5. Poor appetite or overeating: not at all 6. Feeling bad about yourself - or that you are a failure or have let yourself or your family down: not at all 7. Trouble concentrating on things, such as reading the newspaper or watching television: not at all 8. Moving or speaking so slowly that other people could have noticed. Or the opposite - being so fidgety or restless that you have been moving around a lot more than usual: not at all 9. Thoughts that you would be better off or of hurting yourself in some way: not at all Total score: 0 Depression Screening Interpretation: Negative Depression Screening Done: Yes 57420 - PHQ-9 Billing: Yes Source: Developed by Drs. Griffin Guillermo, Joann Rice, Prem Ram and colleagues, with an educational melissa from [employer]. Thrive Questionnaire Date Thrive assessed: 02/07/24 I am a: Patient What is your living situation today?: I have a steady place to live Within the past 12 months, did the food you bought not last and you didn't have the money to get more?: Never true Within the past 12 months, did you worry whether your food would run out before you got money to buy more?: Never true Do you have trouble paying for medicines?: No Do you have trouble getting transportation to medical appointments?: No Do you have trouble paying your heating and electricity bill?: No Do you have trouble taking care of your child, family member or friend?: No Do you have trouble with day-to-day activities such as bathing, preparing meals, shopping, managing finances, etc.?: No Are you currently unemployed and looking for a job?: No Are you interested in more education?: No Please select the resources that you would like help with: None Currently or been in a relationship where the following occur: No concerns reported THRIVE Score: 0 AUDIT C Alcohol Use Questionnaire (AUDIT-C) 1. How often do you have a drink containing alcohol?: Monthly or less (only at family functions) 2. How many drinks containing alcohol do you have on a typical day when you are drinking?: 1 or 2 3. How often do you have six or more drinks on one occasion?: Never Total Score: 1 JALEN-7 AMB Questionnaire JALEN-7 Date JALEN - 7 assessed: 02/07/24 Feeling nervous, anxious, or on edge: 0 = Not at all Not being able to stop or control worryin = Not at all Worrying too much about different things: 0 = Not at all Trouble relaxin = Not at all Being so restless that it is hard to sit still: 0 = Not at all Becoming easily annoyed or irritable: 1 = Several days Feeling afraid as if something awful might happen: 0 = Not at all Total JALEN-7 score (0-4 normal; 5-9 mild; 10-14 moderate; 15-21 severe): 1 Source: Developed by Drs. Griffin Guillermo, Joann Rice, Prem Ram and colleagues, with an educational melissa from [employer]. JALEN-7 Assessment Billing JALEN-7 Assessment Tool: JALEN-7 Assessment 78347 Physical exam (Primary Care) Vital Signs: Last Vital Signs Temp 98.2 F 02/07/24 15:38 Pulse 65 02/07/24 15:38 Resp 16 02/07/24 15:38 BP 122/84 02/07/24 15:38 Pulse Ox 97 02/07/24 15:38 Oxygen Delivery Method Room Air 02/07/24 15:38 BMI result Body Mass Index 37.0 Tobacco/Smoking Status: Tobacco use Status Tobacco use date assessed 02/07/24 02/07/24 15:26 Patient Tobacco Use Status Never used Tobacco 02/07/24 15:26 e-Cigarette/Vaping Use Never Used 02/07/24 15:26 PHQ-9: PHQ-9 Score PHQ-9: Total score 0 02/07/24 15:56 Depression Screening Interpretation: Negative Thrive Assessment: Date of Thrive Assessment Date Thrive assessed 02/07/24 02/07/24 15:46 Currently or been in a relationship where the following occur: No concerns reported Results Reviewed Results Reviewed: Laboratory Tests 04/21/22 08/09/22 08/16/23 06:52 06:41 06:25 WBC 9.3 RBC 5.13 Hgb 14.4 Hct 43.4 Plt Count 310 Sodium 141 Potassium 3.6 Chloride 107 Carbon Dioxide 26 Anion Gap 12 BUN 18 H Creatinine 0.77 Estimated GFR > 60 Fasting Glucose 92 Calcium 9.5 AST 16 ALT 13 Alkaline Phosphatase 61 Triglycerides 169 H Cholesterol 226 H LDL Cholesterol, Calc 143 H HDL Cholesterol 50 TSH 4.90 H 3.67 4.30 H Free T4 1.06 Thyroglobulin Antibody 12 H Thyroid Peroxidase Ab <1 Assessment and Plan Assessment & Plan (1) Hypothyroidism: Code(s): E03.9 - Hypothyroidism, unspecified Qualifiers: Hypothyroidism type: unspecified Qualified Code(s): E03.9 - Hypothyroidism, unspecified Plan: We will start on levothyroxine. Reviewed risks and benefits and adverse effects of the medication. We will recheck labs in 6-8 weeks. (2) Mixed hyperlipidemia: Code(s): E78.2 - Mixed hyperlipidemia Plan: We will check lipids in 6 months. Discussed a low-fat diet. (3) Essential hypertension: Code(s): I10 - Essential (primary) hypertension Plan: Continue current regimen Plan Bone density ordered. Orders: Orders 2 Thyroid Peroxidase Antibodies Today E03.9 - Hypothyroidism, unspecified XR DEXA axial skeleton Today Z78.0 - Asymptomatic menopausal state Comprehensive [place]. Panel Fast 6 Months E78.2 - Mixed hyperlipidemia, I10 - Essential (primary) hypertension Lipid Panel 6 Months E78.2 - Mixed hyperlipidemia, I10 - Essential (primary) hypertension Thyroglobulin Antibodies Today E03.9 - Hypothyroidism, unspecified TSH reflex Free T4 Today E03.9 - Hypothyroidism, unspecified Medications: New levothyroxine 25 mcg PO DAILY 90 tabs 1RF Coding Level of Care Code Est Pt Level 4 (07634) Complex EM visit Add On G2211 Diagnoses Hypothyroidism, unspecified type E03.9 Hypothyroidism type: unspecified Mixed hyperlipidemia E78.2 Essential hypertension I10 Additional Codes JALEN-7 Assessment Billing - JALEN-7 Assessment Tool: JALEN-7 Assessment [id number] ([id number])
[2024-02-07 15:38] VITALS: BP 122/84; PULSE 65; RESP 16; TEMP 36.8; O2SAT 97; BMI 37.0
== END 2024-02-07 16:11 | disposition home or self-care (01) ==
PROVIDERS: PCP Physician Assistant; Visit Provider Physician Assistant
DX: E03.9 Hypothyroidism, unspecified (principal); E78.2 Mixed hyperlipidemia; I10 Essential (primary) hypertension
CPT/HCPCS: 99214

== ENCOUNTER 2024-02-29 08:01 | Outpatient (REF) | payer OTHER, SELFPAY ==
--- NOTE | ~2024-02-29 | MM_ITS ---
EXAMINATION: BONE DENSITOMETRY CLINICAL INDICATION: Menopause. COMPARISON: This is the patient's baseline examination. TECHNIQUE: Using a [employer] DXA System (software version: 13.1) manufactured by [employer], dual-energy x-ray absorptiometry was performed of the lumbar spine and left hip. The images are of good technical quality. Summary results are attached. FINDINGS: LEFT FEMUR, NECK: BMD 1.049 g/cm2, Z-score 0.8, T-score 0.1, normal. LEFT FEMUR, TOTAL: BMD 1.268 g/cm2, Z-score 2.4, T-score 2.1, normal. AP SPINE L1-L4: BMD 1.450 g/cm2, Z-score 2.6, T-score 2.2, normal. IDENTIFIED RISK FACTORS: Menopause, low calcium intake, thiazide. HISTORY OF FRACTURE: None listed. MEDICATIONS: None listed. MM/XR DEXA axial skeleton IMPRESSION: 1. DIAGNOSIS: Normal bone density based on the lowest T-score value of 0.1 in the femoral neck applying World Health Organization criteria. 2. 10-YEAR FRACTURE RISK PREDICTION, FRAX: According to the guidelines, FRAX calculation should only be performed on patients in the osteopenia bone density category. Therefore, FRAX was not performed on this patient. 3. Treatment Recommendations: NOF guidelines recommend consideration for treatment in postmenopausal women and men age 50 and older presenting with the following: -A hip or vertebral (clinical or morphometric) fracture. -T-score less than or equal to -2.5 at the femoral neck or spine after appropriate evaluation to exclude secondary causes. -Low bone mass at the hip or spine and a 10-year fracture probability by FRAX of greater than or equal to 3% for hip fracture or greater than or equal to 20% for major osteoporotic fracture based on the [place] adapted WHO algorithm. 4. Other Recommendations: All treatment decisions require clinical judgment and consideration of individual patient factors, including patient preferences, comorbidities, previous drug use, risk factors not captured in the FRAX model (e.g. frailty, falls, vitamin D deficiency, increased bone turnover, interval significant decline in bone density) and possible under or overestimation of fracture risk by FRAX. FUTURE SCAN RECOMMENDATION: People with diagnosed cases of osteoporosis or at high risk for fracture should have regular bone mineral density tests. For patients eligible for Medicare, routine testing is allowed once every 2 years. The testing frequency can be increased to one year for patients who have rapidly progressing disease, those who are receiving or discontinuing medical therapy to restore bone mass, or have additional risk factors. Electronically signed by: Kristopher Driscoll MD 03/05/2024 11:07 AM TIM FELDMAN
== END 2024-02-29 08:02 | disposition home or self-care (01) ==
LOC: HO.MAMMO 08:01
PROVIDERS: PCP Physician Assistant; Visit Provider Physician Assistant
DX: Z13.820 Encounter for screening for osteoporosis (principal); Z78.0 Asymptomatic menopausal state
CPT/HCPCS: 77080

== ENCOUNTER 2024-05-09 06:42 | Outpatient (REF) | payer OTHER, SELFPAY ==
[2024-05-09 08:09] LABS: TSH reflex Free T4 2.04 uIU/mL (0.32-4.0)
[2024-05-10 12:52] LABS: Thyroglobulin Antibodies 12 IU/mL (< or = 1); Thyroid Peroxidase Antibodies <1 IU/mL (<9)
== END 2024-05-09 06:43 | disposition home or self-care (01) ==
LOC: HO.LAB 06:42
PROVIDERS: PCP Physician Assistant; Visit Provider Physician Assistant
DX: E03.9 Hypothyroidism, unspecified (principal)
CPT/HCPCS: 36415; 84443; 86376; 86800

== ENCOUNTER 2024-05-29 09:35 | Outpatient (AMB) | payer OTHER, SELFPAY ==
--- NOTE | 2024-05-29 09:59 | MHC.PC.OV ---
Vital Signs 05/29/24 10:09 Height 4 ft 9.68 in Weight 178 lb 2 oz BMI 37.6 BP 106/72 Blood Pressure Location Lt brachial Position Sitting Pulse 67 Pulse Source Pulse Oximeter Pulse Oximetry (%) 97 Oxygen Delivery Method Room Air Intake Visit Reasons: follow up thyroid Intake Note: Follow up Ccna Required: No Allergies lisinopril Allergy (Intermediate, Verified 05/29/24 10:00) dry cough Medication List - Last Reconciled 05/29/24 by Dawn Coker PA-C clotrimazole-betamethasone 1-0.05 % 1 appl topical BID PRN 7 days hydrochlorothiazide 25 mg PO DAILY 90 days levothyroxine 25 mcg PO DAILY losartan 75 mg (1.5 x 50 mg) PO DAILY 90 days Tobacco use date assessed: 02/07/24 Dental Screening Dental Screen Date: 02/07/24 HPI follow up thyroid HPI Details Patient is a 53-year-old female who presents today for a follow up. She has no acute concerns today. CV: She has history of hypertension her blood pressure today in the office is 106/72. She is currently on losartan 75 mg and hydrochlorothiazide 25 mg daily. Her last labs did show elevated cholesterol which she states that she is going to be working on with her diet. She exercises at the gym and eats overall healthy. Endo: On levothyroxine 25 mcg. Last TSH was WNL. 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 But for the last month she has had about 3 weeks of bleeding. She is not having any cramping. No abdominal pain or bloating. Does not have an appointment with her dolly pusher until August. Mammo: Up-to-date Colonoscopy: Due in 5 years. 2028 Pap: Up-to-date, last seen by journeyman power plant operator in August. Bone density: Normal-2023 [facility] Medical History (Updated 05/29/24 @ 10:36 by Dawn Coker PA-C) Morbid (severe) obesity due to excess calories COVID-19 Elevated TSH Obesity (BMI 30-39.9) Sweat gland carcinoma Neoplasm Mixed hyperlipidemia Essential hypertension Surgical History Status post Mohs surgery H/O arthroscopic knee surgery H/O skin graft Family History Father Stroke Heart disease Mother Liver cancer Diabetes mellitus Maternal Aunt History of breast cancer Social History (Updated 05/29/24 @ 10:03 by Anju Kohler CMA) Household Members: Significant Other Housing: House Alcohol intake: former Patient Tobacco Use Status: Never used Tobacco e-Cigarette/Vaping Use: Never Used Second Hand Smoke Exposure: No service: No Current occupational status: employed 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 1. Little interest or pleasure in doing things: not at all 2. Feeling down, depressed, or hopeless: not at all 3. Trouble falling or staying asleep, or sleeping too much: not at all 4. Feeling tired or having little energy: not at all 5. Poor appetite or overeating: not at all 6. Feeling bad about yourself - or that you are a failure or have let yourself or your family down: not at all 7. Trouble concentrating on things, such as reading the newspaper or watching television: not at all 8. Moving or speaking so slowly that other people could have noticed. Or the opposite - being so fidgety or restless that you have been moving around a lot more than usual: not at all 9. Thoughts that you would be better off or of hurting yourself in some way: not at all Total score: 0 Source: Developed by Drs. Griffin Guillermo, Joann Rice, Prem Ram and colleagues, with an educational melissa from [email or web address]. Thrive Questionnaire Date Thrive assessed: 05/22/24 I am a: Patient What is your living situation today?: I have a steady place to live Within the past 12 months, did the food you bought not last and you didn't have the money to get more?: Never true Within the past 12 months, did you worry whether your food would run out before you got money to buy more?: Never true Do you have trouble paying for medicines?: No Do you have trouble getting transportation to medical appointments?: No Do you have trouble paying your heating and electricity bill?: No Do you have trouble taking care of your child, family member or friend?: No Do you have trouble with day-to-day activities such as bathing, preparing meals, shopping, managing finances, etc.?: No Are you currently unemployed and looking for a job?: No Are you interested in more education?: No Please select the resources that you would like help with: None Currently or been in a relationship where the following occur: No concerns reported THRIVE Score: 0 AUDIT C Alcohol Use Questionnaire (AUDIT-C) 1. How often do you have a drink containing alcohol?: Monthly or less 2. How many drinks containing alcohol do you have on a typical day when you are drinking?: 1 or 2 3. How often do you have six or more drinks on one occasion?: Never Total Score: 1 JALEN-7 AMB Questionnaire JALEN-7 Date JALEN - 7 assessed: 02/07/24 Feeling nervous, anxious, or on edge: 0 = Not at all Not being able to stop or control worryin = Not at all Worrying too much about different things: 0 = Not at all Trouble relaxin = Not at all Being so restless that it is hard to sit still: 0 = Not at all Becoming easily annoyed or irritable: 0 = Not at all Feeling afraid as if something awful might happen: 0 = Not at all Total JALEN-7 score (0-4 normal; 5-9 mild; 10-14 moderate; 15-21 severe): 0 Source: Developed by Drs. Griffin Guillermo, Joann Rice, Prem Ram and colleagues, with an educational melissa from [email or web address]. Physical exam (Primary Care) Vital Signs: Last Vital Signs Pulse 67 05/29/24 10:09 BP 106/72 05/29/24 10:09 Pulse Ox 97 05/29/24 10:09 Oxygen Delivery Method Room Air 05/29/24 10:09 BMI result Body Mass Index 37.6 Tobacco/Smoking Status: Tobacco use Status Tobacco use date assessed 02/07/24 05/29/24 10:07 Patient Tobacco Use Status Never used Tobacco 05/29/24 10:07 e-Cigarette/Vaping Use Never Used 05/29/24 10:07 PHQ-9: PHQ-9 Score PHQ-9: Total score 0 05/29/24 10:19 Thrive Assessment: Date of Thrive Assessment Date Thrive assessed 05/22/24 05/29/24 10:07 Currently or been in a relationship where the following occur: No concerns reported Const Orientation/consciousness: patient oriented x3 HENMT Ears: hearing grossly normal bilaterally Neck Thyroid: Thyroid normal Lymphatic: no lymphadenopathy noted Resp Auscultation: clear to auscultation bilaterally Cardio Rate: regular rate Rhythm: regular rhythm Heart sounds: S1 normal heart sound present and S2 normal heart sound present GI Inspection: Yes normal to inspection Palpation (GI): Soft to palpation and Other GI palpation findings present (nontender, no cva tenderness) Auscultation: normoactive bowel sounds Rectal Exam - Female: deferred Skin General skin exam: no rashes or lesions noted Neuro General: patient oriented x3, gait normal and no focal motor deficits Coding Level of Care Code Est Pt Level 4 (93567) Complex EM visit Add On G2211 Diagnoses Abnormal perimenopausal bleeding N92.4 Essential hypertension I10 Mixed hyperlipidemia E78.2 Hypothyroidism, unspecified type E03.9 Hypothyroidism type: unspecified Assessment & Plan Assessment & Plan (1) Abnormal perimenopausal bleeding: Code(s): N92.4 - Excessive bleeding in the premenopausal period Category: Medical Plan: Ultrasound ordered. Advised to contact journeyman power plant operator (2) Essential hypertension: Code(s): I10 - Essential (primary) hypertension Category: Medical Plan: WNL. Continue current regimen (3) Mixed hyperlipidemia: Code(s): E78.2 - Mixed hyperlipidemia Category: Medical Plan: We will check lipids and CMP. (4) Hypothyroidism: Code(s): E03.9 - Hypothyroidism, unspecified Category: Medical Qualifiers: Hypothyroidism type: unspecified Qualified Code(s): E03.9 - Hypothyroidism, unspecified Plan: Continue current regimen. Orders: Orders Complete Blood Count Auto Diff Today E03.9 - Hypothyroidism, unspecified, E78.2 - Mixed hyperlipidemia, I10 - Essential (primary) hypertension, N92.4 - Excessive bleeding in the premenopausal period TSH reflex Free T4 Today E03.9 - Hypothyroidism, unspecified, E78.2 - Mixed hyperlipidemia, I10 - Essential (primary) hypertension, N92.4 - Excessive bleeding in the premenopausal period US pelvic and transvaginal Today N92.4 - Excessive bleeding in the premenopausal period Comprehensive [place]. Panel Fast Today E03.9 - Hypothyroidism, unspecified, E78.2 - Mixed hyperlipidemia, I10 - Essential (primary) hypertension, N92.4 - Excessive bleeding in the premenopausal period Lipid Panel Today E03.9 - Hypothyroidism, unspecified, E78.2 - Mixed hyperlipidemia, I10 - Essential (primary) hypertension, N92.4 - Excessive bleeding in the premenopausal period
[2024-05-29 10:09] VITALS: BP 106/72; PULSE 67; O2SAT 97; BMI 37.6
== END 2024-05-29 10:42 | disposition home or self-care (01) ==
PROVIDERS: PCP Physician Assistant; Visit Provider Physician Assistant
DX: N92.4 Excessive bleeding in the premenopausal period (principal); I10 Essential (primary) hypertension; E78.2 Mixed hyperlipidemia; E03.9 Hypothyroidism, unspecified

== ENCOUNTER → 2024-05-29 09:35 | Outpatient (BNVA) | payer OTHER, SELFPAY | PROVIDERS: PCP Physician Assistant; Visit Provider Physician Assistant ==

== ENCOUNTER 2024-06-05 14:23 | Outpatient (REF) | payer OTHER, SELFPAY | END 2024-06-05 14:24 | disposition home or self-care (01) | LOC: HO.US 14:23 | PROVIDERS: PCP Physician Assistant; Visit Provider Physician Assistant | DX: N92.4 Excessive bleeding in the premenopausal period (principal) | CPT/HCPCS: 76830; 76856 ==

== ENCOUNTER 2024-07-09 10:30 | Outpatient (REF) | payer OTHER, SELFPAY ==
[2024-07-10 21:03] LABS: Follicle Stimulating Hormone 24.9 mIU/mL
== END 2024-07-09 10:31 | disposition home or self-care (01) ==
LOC: HO.LAB 10:30
PROVIDERS: PCP Physician Assistant; Visit Provider Advanced Practice Midwife
DX: N92.4 Excessive bleeding in the premenopausal period (principal); N83.291 Other ovarian cyst, right side
CPT/HCPCS: 36415; 83001

== ENCOUNTER 2024-07-09 10:30 | Outpatient (AMB) | payer OTHER, SELFPAY ==
--- NOTE | 2024-07-09 10:32 | A.OFFVIS_ITS ---
Intake Visit Reasons: follow up in care School Bus Driver/Custodian: School Bus Driver/Custodian Present (Caron) Accompanied by: Self / Same As Patient Allergies lisinopril Allergy (Intermediate, Verified 07/09/24 10:32) dry cough Is last menstrual period known: Yes HPI Comments Details: * Patient is here today to discuss her ultrasound results and plan of care, referred from her PCP to follow up on her ultrasound due to abnormal findings. She admits to having irregular bleeding episodes throughout the last several months. She denies any hot flashes. [facility] Medical History (Updated 05/29/24 @ 10:36 by Dawn Coker PA-C) Morbid (severe) obesity due to excess calories COVID-19 Elevated TSH Obesity (BMI 30-39.9) Sweat gland carcinoma Neoplasm Mixed hyperlipidemia Essential hypertension Surgical History Status post Mohs surgery H/O arthroscopic knee surgery H/O skin graft Family History Father Stroke Heart disease Mother Liver cancer Diabetes mellitus Maternal Aunt History of breast cancer Social History (Updated 05/29/24 @ 10:03 by Anju Kohler CMA) Household Members: Significant Other Housing: House Alcohol intake: former Patient Tobacco Use Status: Never used Tobacco e-Cigarette/Vaping Use: Never Used Second Hand Smoke Exposure: No service: No Current occupational status: employed 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[employer] Current occupational exposures/hazards: No Sexual orientation: Straight/Heterosexual Gender identity: Female Cognitive needs: No Hearing needs: No Vision needs: No Female Reproductive History Menstrual Age of Menarche: 7 Review of Systems Const All systems reviewed & are unremarkable except as noted in HPI and below Endo Reports no additional complaints Physical Exam Const General: cooperative, healthy appearing and no acute distress Psych Appearance: well kempt Attitude: cooperative Thought process: Normal thought process present Results Reviewed Results Reviewed: [address] [address] Ultrasound Report Signed Patient: Viral Woods MR#: [id number] : 1970 Acct:[id number] Age/Sex: 54 / F ADM Date: 06/05/24 Loc: HO. Attending Dr: Dawn Coker PA-C Ordering Physician: Dawn Coker Date of Service: 06/05/24 Procedure(s): US pelvic and transvaginal Accession Number(s): [id number] cc: Dawn Coker~ EXAMINATION: US PELVIS CLINICAL INFORMATION: Excessive bleeding, postmenopausal bleeding, spotting for 3 weeks, no previous imaging, patient denies pain. COMPARISON: None available. TECHNIQUE: Ultrasound of the pelvis is performed using both transabdominal and transvaginal transducers along with Doppler. Transvaginal imaging is performed due to inadequate visualization transabdominally. FINDINGS: Anteverted uterus measures 7.7 x 4.8 x 5.4 cm. LEFT ovary not visualized. Limited visualization due to bowel gas and body habitus. RIGHT ovary measures 1.9 x 0.9 x 2.5 cm, volume 2.3 mL. 0.7 x 0.5 x 0.7 cm RIGHT ovarian cyst. A 1.9 x 1.2 x 1.3 cm RIGHT adnexal cyst. No significant free fluid. Nabothian cysts in the cervix. Endometrium appears abnormal for a patient with postmenopausal bleeding with endometrial thickness of 19 mm and heterogeneous appearance with tiny cystic spaces. Gynecologic consultation recommended to determine further management including possible biopsy. US/US pelvic and transvaginal IMPRESSION: 1. Endometrium appears abnormal for a patient with postmenopausal bleeding with endometrial thickness of 19 mm and heterogeneous appearance with tiny cystic spaces. Gynecologic consultation recommended to determine further management including possible biopsy. 2. LEFT ovary not visualized. Limited visualization due to bowel gas and body habitus. 3. A 0.7 cm RIGHT ovarian cyst. 4. A 1.9 cm RIGHT adnexal cyst. This study was presented to me on July 08, 2023 for interpretation. PSA staff will provide results to referring provider at this time. Electronically signed by: Tammy Vargas MD 07/08/2024 06:01 AM [facility] Dictated By: Tammy Vargas MD Signed By: <Electronically signed by Tammy Vargas MD in OV> 07/08/24 0601 DD/ 1438 TD/TT: 06/05/24 1510 Book Repairer: Assessment & Plan Assessment & Plan (1) Abnormal perimenopausal bleeding: Code(s): N92.4 - Excessive bleeding in the premenopausal period Category: Medical (2) Abnormal finding on ultrasound: Code(s): R93.89 - Abnormal findings on diagnostic imaging of other specified body structures Plan Discussed: Ultrasound findings suggestive of endometrial polyps, recommend her have a hysteroscopy for diagnostics, with a pre consult to be scheduled and discuss the procedure and plan of care. Anticipatory guidance reviewed for hysteroscopy procedure. Perimenopause versus menopause diagnosis. Plan FSH. Annual exam as scheduled through the end of this month. The patient expressed understanding and agreement with the plan of care. All of her questions and concerns were addressed to the best of my ability. This note is constructed using voice recognition software. While every effort h as been made to ensure accuracy, mold cleaning and storage supervisor errors may have been included. Orders: Orders Follicle Stimulating Hormone Today N92.4 - Excessive bleeding in the premenopausal period Coding Level of Care Code Est Pt Level 2 (04924) Diagnoses Abnormal perimenopausal bleeding N92.4 Abnormal finding on ultrasound R93.89
== END 2024-07-09 15:03 | disposition home or self-care (01) ==
LOC: HO.HWS 10:30
PROVIDERS: PCP Physician Assistant; Visit Provider Advanced Practice Midwife
DX: N92.4 Excessive bleeding in the premenopausal period (principal); R93.89 Abnormal findings on diagnostic imaging of other specified body structures
CPT/HCPCS: 99213

== ENCOUNTER 2024-07-15 12:15 | Outpatient (AMB) | payer OTHER, SELFPAY ==
--- NOTE | 2024-07-15 12:27 | A.OFFVIS_ITS ---
Intake Visit Reasons: Hysteroscopy consult Allergies lisinopril Allergy (Intermediate, Verified 07/09/24 10:32) dry cough HPI Comments Details: Presenting referred from Angelina Dove CNM . The patient has been having irregular vaginal bleeding over the last few weeks. Pelvic Ultrasound done in 06/05 read in 07/08/2023 showed the following: IMPRESSION: 1. Endometrium appears abnormal for a patient with postmenopausal bleeding with endometrial thickness of 19 mm and heterogeneous appearance with tiny cystic spaces. Gynecologic consultation recommended to determine further management including possible biopsy. 2. LEFT ovary not visualized. Limited visualization due to bowel gas and body habitus. 3. A 0.7 cm RIGHT ovarian cyst. 4. A 1.9 cm RIGHT adnexal cyst. Last co testing in 03/22 was negative Screening mammogram in 01/23 was BI-RADS 1 Last FSH in 07/27 was 24.9, in the menopausal range PFSH Medical History Morbid (severe) obesity due to excess calories COVID-19 Elevated TSH Obesity (BMI 30-39.9) Sweat gland carcinoma Neoplasm Mixed hyperlipidemia Essential hypertension Surgical History Status post Mohs surgery H/O arthroscopic knee surgery H/O skin graft Family History Father Stroke Heart disease Mother Liver cancer Diabetes mellitus Maternal Aunt History of breast cancer Social History Household Members: Significant Other Housing: House Alcohol intake: former Patient Tobacco Use Status: Never used Tobacco e-Cigarette/Vaping Use: Never Used Second Hand Smoke Exposure: No service: No Current occupational status: employed 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[employer] Current occupational exposures/hazards: No Sexual orientation: Straight/Heterosexual Gender identity: Female Cognitive needs: No Hearing needs: No Vision needs: No Female Reproductive History Menstrual Age of Menarche: 7 Review of Systems Const All systems reviewed & are unremarkable except as noted in HPI and below Reports as per HPI and Reports no additional complaints GI Reports no additional complaints Reports no additional complaints Office Procedures Endometrial Biopsy Details: The patient was counseled regarding the indication and benefits of endometrial sampling to rule out endometrial pathology including not limited to endometrial hyperplasia or endometrial cancer and others; The alternatives (Either do not mary jo vs. hysteroscopy D&C) & the risks were discussed with the patient including but not limited: pain, uterine perforation, bleeding, infection, possible injury to bladder, bowel, ureter, possible need for blood transfusion with all its possible risks. The patient verbalized understanding all questions answered and signed consent. Urine test done in the office was negative The patient was placed into the dorsal lithotomy position; a speculum was inserted in the vagina. Using aseptic technique for the procedure, the cervix was cleansed with Betadine. The anterior lip of the cervix was grasped with a single tooth tenaculum. The uterus was sounded to 7 cm with a 4 mm Pipelle was used. Tissues samples were obtained and placed in formalin, in a patient labeled container and sent to the pathology department. At the end of the procedure, there was minimal bleeding noted The patient tolerated the procedure well and was discharged in good condition with the following instructions: Nothing in the vagina until the bleeding stops. No sex until the bleeding stops, to call if any of the following occurs: fever (>100.4), flu-like symptoms, abdominal pain, heavy bleeding, four smelling vaginal discharge. The patient was instructed to schedule a Follow up appointment in 2 weeks to discuss pathology results of the biopsy and treatment options. This note was generated with a voice recognition program. Some errors may have been overlooked during the review of this note. Sometimes these errors may affect the content or meaning of a given sentence. [id number] Biopsy Results AMB Test Urine AMB Test Urine Negative Last Edit by LYN Alcazar on 07/15/24 12:57 Results Reviewed Results Reviewed: Laboratory Last Values Tst Clinic Negative 07/15/24 12:57 Assessment & Plan Assessment & Plan (1) Abnormal uterine bleeding (AUB): Code(s): N93.9 - Abnormal uterine and vaginal bleeding, unspecified Category: Medical Plan: Discussed with the patient the pelvic ultrasound findings, the endometrial stripe thickenss measured by ultrasound was more than 4mm with abnormal cystic spaces. Recommended to the patient that the next step is an endometrial sampling via hysteroscopy D&C possible polypectomy versus endometrial biopsy to r/o endometrial pathology including hyperplasia or cancer. All the pros and cons risks and benefits of each approach were discussed with the patient, endometrial biopsy being less invasive, office procedure with less sensitivity and inability diagnose a polyp and removal versus hysteroscopy done under anesthesia more invasive more sensitive to endometrial cancer and possibility of diagnosing and endometrial polyp with the possibility of polypectomy. All questions were answered pt verbalized understanding and decided to proceed with endometrial biopsy. EMB done, see procedure note Orders: Orders AMB HCG Urine Test Today N93.9 - Abnormal uterine and vaginal bleeding, unspecified AMB Endometrial Biopsy Today N93.9 - Abnormal uterine and vaginal bleeding, unspecified Coding Level of Care Code Est Pt Level 3 (96532) Procedure Only Diagnoses Abnormal uterine bleeding (AUB) N93.9 CPT Codes Endometrial Biopsy - CPT: 99015-Ndyrjixpzdo Biopsy ([id number])
== END 2024-07-15 13:19 | disposition home or self-care (01) ==
LOC: HO.HWS 12:15
PROVIDERS: PCP Physician Assistant; Visit Provider Obstetrics & Gynecology
DX: N93.9 Abnormal uterine and vaginal bleeding, unspecified (principal)
CPT/HCPCS: 58100; 99213

== ENCOUNTER 2024-07-15 12:15 | Outpatient (REF) | payer OTHER, SELFPAY | END 2024-07-15 12:16 | disposition home or self-care (01) | LOC: HO.LNP 12:15 | PROVIDERS: PCP Physician Assistant; Visit Provider Obstetrics & Gynecology | DX: C54.1 Malignant neoplasm of endometrium (principal); N93.9 Abnormal uterine and vaginal bleeding, unspecified | CPT/HCPCS: 58100; 81025; 88305; 88341; 88342; 88360 ==

== ENCOUNTER 2024-07-29 07:55 | Outpatient (AMB) | payer OTHER, SELFPAY ==
--- NOTE | 2024-07-29 07:56 | MHC.OFFVIS ---
Intake Visit Reasons: EMB follow up per Dr. Vergara Allergies lisinopril Allergy (Intermediate, Verified 07/09/24 10:32) dry cough HPI Comments Details: Presenting post EMB for follow-up. The pathology showed the following: Endometrium, biopsy: Endometrial adenocarcinoma, endometrioid type, FIGO grade 2. See comment. Comment: MSI studies will be addended [facility] Medical History Morbid (severe) obesity due to excess calories COVID-19 Elevated TSH Obesity (BMI 30-39.9) Sweat gland carcinoma Neoplasm Mixed hyperlipidemia Essential hypertension Surgical History Status post Mohs surgery H/O arthroscopic knee surgery H/O skin graft Family History Father Stroke Heart disease Mother Liver cancer Diabetes mellitus Maternal Aunt History of breast cancer Social History Household Members: Significant Other Housing: House Alcohol intake: former Patient Tobacco Use Status: Never used Tobacco e-Cigarette/Vaping Use: Never Used Second Hand Smoke Exposure: No service: No Current occupational status: employed 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[employer] Current occupational exposures/hazards: No Sexual orientation: Straight/Heterosexual Gender identity: Female Cognitive needs: No Hearing needs: No Vision needs: No Female Reproductive History Menstrual Age of Menarche: 7 Review of Systems Const All systems reviewed & are unremarkable except as noted in HPI and below Reports as per HPI and Reports no additional complaints GI Reports no additional complaints Reports no additional complaints Assessment & Plan Assessment & Plan (1) Endometrial adenocarcinoma: Comment: Grade 2 Code(s): C54.1 - Malignant neoplasm of endometrium Category: Medical Plan: Discussed with the patient the pathology results, the recommended surgical staging procedure, and the prognosis. CT scan of abdomen and pelvis with oral contrast, chest x-ray and CA 125 ordered. [facility] referral placed, the patient has an appointment with Dr. Eisenberg on 08/15/2024 at 09:00, the patient is aware. All questions answered, the patient verbalized understanding. Coding Level of Care Code Est Pt Level 3 (87844) Diagnoses Endometrial adenocarcinoma C54.1
== END 2024-07-29 08:17 | disposition home or self-care (01) ==
LOC: HO.HWS 07:55
PROVIDERS: PCP Physician Assistant; Visit Provider Obstetrics & Gynecology
DX: C54.1 Malignant neoplasm of endometrium (principal)
CPT/HCPCS: 99213

== ENCOUNTER 2024-07-29 07:55 | Outpatient (REF) | payer OTHER, SELFPAY ==
--- NOTE | ~2024-07-29 | XR_ITS ---
EXAMINATION: XR CHEST 2 VIEWS HISTORY: C54.1 - Malignant neoplasm of endometrium COMPARISON: There are no prior studies for comparison. FINDINGS: PA and lateral views of the chest are submitted. The lungs are expanded and clear. There is no pleural effusion, pneumothorax, or pulmonary vascular congestion. The heart is normal in size. There is degenerative disc disease of the spine. XR/XR chest 2V IMPRESSION: Clear lungs. Electronically signed by: Griffin Uriostegui MD 07/29/2024 03:26 PM EST
[2024-07-30 09:03] LABS: CA-125 11 U/mL (<35)
== END 2024-07-29 07:56 | disposition home or self-care (01) ==
LOC: HO.XRAY 07:55
PROVIDERS: PCP Physician Assistant; Visit Provider Obstetrics & Gynecology
DX: C54.1 Malignant neoplasm of endometrium (principal)
CPT/HCPCS: 36415; 71046; 86304

== ENCOUNTER → 2024-07-29 13:00 | Outpatient (BNV) | payer OTHER, SELFPAY | PROVIDERS: PCP Physician Assistant; Visit Provider Radiology Diagnostic Radiology | DX: C54.1 Malignant neoplasm of endometrium (principal) | CPT/HCPCS: 71046 ==

== ENCOUNTER → 2024-08-05 11:32 | Outpatient (BNV) | payer OTHER, SELFPAY | PROVIDERS: PCP Physician Assistant; Visit Provider Radiology Diagnostic Radiology | DX: C54.1 Malignant neoplasm of endometrium (principal) | CPT/HCPCS: 74177 ==

== ENCOUNTER 2024-10-31 08:05 | Outpatient (AMB) | payer OTHER, SELFPAY ==
--- NOTE | 2024-10-31 08:09 | AM.OFFWIN_ITS ---
Intake Vital Signs 10/31/24 08:11 Weight 181 lb BP 122/80 Blood Pressure Location Rt brachial Position Sitting Pulse 61 Pulse Source Pulse Oximeter Temp 98.1 F Temp Source Oral Pulse Oximetry (%) 98 Intake Visit Reasons: EP Rash all over face Intake Note: Patient here for rash around right eye and on scalp that started monday. Patient Tobacco Use Status: Never used Tobacco Allergies lisinopril Allergy (Intermediate, Verified 10/31/24 08:11) dry cough Do you need a note to return to daycare/school/sports/work: No HPI HPI Comments History of Present Illness Details History of Present Illness - The patient is a 54-year-old female pr esenting with a skin rash with itching on her nose and upper right cheek. - Rash onset was 4 days ago, initially a ppearing as a small bump, with progression through the week to involve multiple areas, described as dry, raised, and not fluid filled. - Noteworthy is the patient's history of applying triamcinolone cream for hives and skin conditions without significant alleviation of current symptoms. - Possible allergic trigger considered f rom [place], correlated with rash onset. - Reported alleviative measures include the application of cold compresses reducing itch. - The patient also reports past episodes of hives and has received prior vaccinations against shingles. - Minor sinus symptoms led to molar ache earlier in the week, with a possible sinus component considered due to proximity of symptoms. Physical Exam General: Cooperative, healthy appearing, comfortable, no acute distress and well developed Orientation: Patient oriented x3 Limitations: No limitations Head: Normal to inspection Ears: Hearing grossly normal bilaterally Nose: Normal External nose present Face and sinus: Normal facial exam, see below Eyes: Appearance normal, both eyes and all related structures Neck: Normal visual inspection and Yes full ROM Respiratory: Normal respiratory effort and able to speak in complete sentences. Skin: Dry, raised, erythematous patch 1cmx1.25cm on bridge of nose and a smaller patch similar lateral to the right eyebrow. Neuro: Patient oriented x3 Extremities: Normal to inspection [facility] Medical History Morbid (severe) obesity due to excess calories COVID-19 Elevated TSH Obesity (BMI 30-39.9) Sweat gland carcinoma Neoplasm Mixed hyperlipidemia Essential hypertension Surgical History Status post Mohs surgery H/O arthroscopic knee surgery H/O skin graft Family History Father Stroke Heart disease Mother Liver cancer Diabetes mellitus Maternal Aunt History of breast cancer Social History Household Members: Significant Other Housing: House Alcohol intake: former Patient Tobacco Use Status: Never used Tobacco e-Cigarette/Vaping Use: Never Used Second Hand Smoke Exposure: No service: No Current occupational status: employed 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[employer] Current occupational exposures/hazards: No Sexual orientation: Straight/Heterosexual Gender identity: Female Cognitive needs: No Hearing needs: No Vision needs: No Female Reproductive History Menstrual Age of Menarche: 7 Review of Systems Const All systems reviewed & are unremarkable except as noted in HPI and below Physical Exam Vital Signs: Last Vital Signs Temp 98.1 F 10/31/24 08:11 Pulse 61 10/31/24 08:11 BP 122/80 10/31/24 08:11 Pulse Ox 98 10/31/24 08:11 Assessment & Plan Assessment & Plan (1) Eczema: Code(s): L30.9 - Dermatitis, unspecified Qualifiers: Eczema type: intrinsic Qualified Code(s): L20.84 - Intrinsic (allergic) eczema Plan: Likely intrinsic eczema, I recommend initiating treatment with clobetasol cream, highlighting its strong potency and emphasizing careful application to avoid ocular regions. Management combined with an [id number]-[id number] antihistamine to mitigate itchiness. The patient may use cold compresses to alleviate itching further. If no improvement in her symptoms, she should follow up with us for a referral to Dermatology. Patient was informed and verbally consented to the use of an ambient scribe for clinic note documentation during this visit. Medications: New clobetasol 0.05% Do not use on hands face or genitals. Please wash your hands after applying this medication or use gloves 1 appl topical BID 1 week 30 grams 0RF Discontinued clotrimazole-betamethasone 1-0.05 % Discontinued Reason: Patient Completed Course 1 appl topical BID 7 days PRN 45 grams 0RF itching Coding Level of Care Code Est Pt Level 3 (40820) Diagnoses Intrinsic eczema L20.84 Eczema type: intrinsic
[2024-10-31 08:11] VITALS: BP 122/80; PULSE 61; TEMP 36.7; O2SAT 98
== END 2024-10-31 08:44 | disposition home or self-care (01) ==
PROVIDERS: PCP Physician Assistant; Visit Provider Physician Assistant
DX: L20.84 Intrinsic (allergic) eczema (principal)

== ENCOUNTER → 2024-10-31 08:05 | Outpatient (BNVA) | payer OTHER, SELFPAY | PROVIDERS: PCP Physician Assistant; Visit Provider Physician Assistant ==

== ENCOUNTER 2024-11-19 06:23 | Outpatient (REF) | payer OTHER, SELFPAY ==
[2024-11-19 06:40] LABS: MANUAL DIFF FLAG NO
[2024-11-19 07:13] LABS: Basophils Absolute Auto 0.1 X10*3/uL (0.0-0.2); Basophils Percent Auto 1.2 % (0-2); Eosinophils Absolute Auto 0.2 X10*3/uL (0.0-0.4); Eosinophils Percent Auto 2.3 % (0-4); Hematocrit 43.2 % (37.0-47.0); Hemoglobin 14.5 g/dl (12.0-16.0); Imm Gran Abs Auto 0.03 X10*3/uL (0.00-0.03); Imm Gran Pct Auto 0.4 % (0.0-0.4); Lymphocytes Absolute Auto 3.1 X10*3/uL (1.2-4.9); Lymphocytes Percent Auto 36.2 % (20-40); Mean Corpuscular HGB Conc 33.6 g/dl (31.0-35.0); Mean Corpuscular Hemoglobin 28.3 pg (27.0-33.0); Mean Corpuscular Volume 84.4 fL (80.0-98.0); Mean Platelet Volume 10.3 fL (9.4-12.3); Monocytes Absolute Auto 0.6 X10*3/uL (0.1-1.2); Monocytes Percent Auto 6.8 % (2-11); Neutrophils Absolute Auto 4.5 x10*3/uL (2.0-8.3); Neutrophils Percent Auto 53.1 % (45-73); Platelet Count 294 X10*3/uL (160-400); Red Blood Count 5.12 X10*6/uL (4.20-5.50); White Blood Count 8.4 X10*3/uL (4.8-10.8)
[2024-11-19 07:45] LABS: Alanine Aminotransferase 19 U/L (0-31); Albumin Level 3.9 g/dL (3.5-5.0); Alkaline Phosphatase 59 U/L (39-117); Anion Gap 11 (12-20); Aspartate Amino Transferase 21 U/L (5-31); Bilirubin Total 0.7 mg/dL (0.0-1.0); Blood Urea Nitrogen 18 mg/dL (9-16); Calcium 9.5 mg/dL (8.4-10.2); Carbon Dioxide 28 mmol/L (22-29); Chloride 105 mmol/L (96-108); Cholesterol 229 mg/dL (<200); Estimated Glomerular Filt Rate > 60; Glucose Fasting 106 mg/dL (60-99); HDL Cholesterol 46 mg/dL (>40); LDL Cholesterol Calculated 145 mg/dL (<100); Potassium 3.6 mmol/L (3.3-5.1); Sodium 140 mmol/L (135-145); Total Protein 7.3 g/dL (6.5-8.0); Triglycerides 191 mg/dL (<150)
[2024-11-19 08:00] LABS: TSH reflex Free T4 2.99 uIU/mL (0.32-4.0)
== END 2024-11-19 06:24 | disposition home or self-care (01) ==
LOC: HO.LAB 06:23
PROVIDERS: PCP Physician Assistant; Visit Provider Physician Assistant
DX: E78.2 Mixed hyperlipidemia (principal); I10 Essential (primary) hypertension; N92.4 Excessive bleeding in the premenopausal period; E03.9 Hypothyroidism, unspecified
CPT/HCPCS: 36415; 80053; 80061; 84443; 85025

== ENCOUNTER 2024-11-26 06:44 | Outpatient (REF) | payer OTHER, SELFPAY ==
[2024-11-26 07:56] LABS: Alanine Aminotransferase 19 U/L (0-31); Albumin Level 3.9 g/dL (3.5-5.0); Alkaline Phosphatase 52 U/L (39-117); Anion Gap 13 (12-20); Aspartate Amino Transferase 29 U/L (5-31); Bilirubin Total 0.6 mg/dL (0.0-1.0); Blood Urea Nitrogen 18 mg/dL (9-16); Calcium 9.2 mg/dL (8.4-10.2); Carbon Dioxide 26 mmol/L (22-29); Chloride 105 mmol/L (96-108); Cholesterol 211 mg/dL (<200); Estimated Glomerular Filt Rate > 60; Glucose Fasting 102 mg/dL (60-99); HDL Cholesterol 45 mg/dL (>40); LDL Cholesterol Calculated 136 mg/dL (<100); Potassium 3.5 mmol/L (3.3-5.1); Sodium 140 mmol/L (135-145); Total Protein 7.1 g/dL (6.5-8.0); Triglycerides 152 mg/dL (<150)
[2024-11-26 09:00] LABS: Estimated Average Glucose 111 mg/dL; Hemoglobin A1C 135.2339 umol/L; Hemoglobin A1c % 5.5 % (<6.0); Total Hemoglobin (HGBA1C) 3668.4992 umol/L
== END 2024-11-26 06:45 | disposition home or self-care (01) ==
LOC: HO.LAB 06:44
PROVIDERS: PCP Physician Assistant; Visit Provider Physician Assistant
DX: E78.2 Mixed hyperlipidemia (principal); R73.01 Impaired fasting glucose; I10 Essential (primary) hypertension; E03.9 Hypothyroidism, unspecified; N92.4 Excessive bleeding in the premenopausal period
CPT/HCPCS: 36415; 80053; 80061; 83036

== ENCOUNTER 2024-12-26 10:24 | Outpatient (AMB) | payer OTHER, SELFPAY ==
--- NOTE | 2024-12-26 10:34 | MHC.PC.OV ---
Vital Signs 12/26/24 10:38 Height 4 ft 9.64 in Weight 181 lb 8 oz BMI 38.4 BP 106/76 Blood Pressure Location Rt brachial Position Sitting Respiration 12 Pulse 60 Pulse Source Pulse Oximeter Temp 98.2 F Temp Source Oral Pulse Oximetry (%) 97 Oxygen Delivery Method Room Air Intake Visit Reasons: cpe Intake Note: Physical Hotel Dining Room Cashier Required: No Allergies lisinopril Allergy (Intermediate, Verified 12/26/24 10:37) dry cough Medication List - Last Reconciled 12/27/24 by Dawn Coker PA-C clobetasol 0.05% 1 appl topical BID 1 week hydrochlorothiazide 25 mg PO DAILY 90 days levothyroxine 25 mcg PO DAILY losartan 75 mg (1.5 x 50 mg) PO DAILY 90 days Tobacco use date assessed: 12/26/24 Dental Screening Dental Screen Date: 12/26/24 Did you have a dental visit in the last 12 months?: Yes Did you have a dental problem in the last 6 months where you did not have access to dental care?: No Was dental information given to patient?: Patient has dentist HPI cpe HPI Details Patient is a 54-year-old female who presents today for a physical exam. She has no acute concerns today. CV: She has history of hypertension her blood pressure today in the office is 106/72. She is currently on losartan 75 mg and hydrochlorothiazide 25 mg daily. Her last labs did show elevated but improved cholesterol which she states that she is going to be working on with her diet. She exercises at the gym and eats overall healthy. Endo: On levothyroxine 25 mcg. Last TSH was WNL. 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 She is following with OBGYN Oncology. Mammo: Up-to-date Colonoscopy: Due in 5 years. 2028 Pap: S/p recent hysterectomy Bone density: Normal-2023 [facility] Medical History Morbid (severe) obesity due to excess calories COVID-19 Elevated TSH Obesity (BMI 30-39.9) Sweat gland carcinoma Neoplasm Mixed hyperlipidemia Essential hypertension Surgical History Status post Mohs surgery H/O arthroscopic knee surgery H/O skin graft Family History Father Stroke Heart disease Mother Liver cancer Diabetes mellitus Maternal Aunt History of breast cancer Social History (Updated 12/26/24 @ 13:43 by Anju Kohler CMA) Household Members: Significant Other Housing: House Alcohol intake: former Patient Tobacco Use Status: Never used Tobacco e-Cigarette/Vaping Use: Never Used Second Hand Smoke Exposure: No Use of substances other than those prescribed or required for medical reasons: No service: No Current occupational status: employed 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 1. Little interest or pleasure in doing things: not at all 2. Feeling down, depressed, or hopeless: not at all 3. Trouble falling or staying asleep, or sleeping too much: not at all 4. Feeling tired or having little energy: not at all 5. Poor appetite or overeating: not at all 6. Feeling bad about yourself - or that you are a failure or have let yourself or your family down: not at all 7. Trouble concentrating on things, such as reading the newspaper or watching television: not at all 8. Moving or speaking so slowly that other people could have noticed. Or the opposite - being so fidgety or restless that you have been moving around a lot more than usual: not at all 9. Thoughts that you would be better off or of hurting yourself in some way: not at all Total score: 0 Depression Screening Interpretation: Negative Depression Screening Done: Yes 20170 - PHQ-9 Billing: Yes Source: Developed by Drs. Griffin Guillermo, Joann Rice, Prem Ram and colleagues, with an educational melissa from [employer]. Thrive Questionnaire Date Thrive assessed: 12/26/24 I am a: Patient What is your living situation today?: I have a steady place to live Within the past 12 months, did the food you bought not last and you didn't have the money to get more?: Never true Within the past 12 months, did you worry whether your food would run out before you got money to buy more?: Never true Do you have trouble paying for medicines?: No Do you have trouble getting transportation to medical appointments?: No Do you have trouble paying your heating and electricity bill?: No Do you have trouble taking care of your child, family member or friend?: No Do you have trouble with day-to-day activities such as bathing, preparing meals, shopping, managing finances, etc.?: No Are you currently unemployed and looking for a job?: No Are you interested in more education?: I choose not to answer this question Please select the resources that you would like help with: None Currently or been in a relationship where the following occur: No concerns reported THRIVE Score: 0 AUDIT C Alcohol Use Questionnaire (AUDIT-C) 1. How often do you have a drink containing alcohol?: Monthly or less 2. How many drinks containing alcohol do you have on a typical day when you are drinking?: 1 or 2 3. How often do you have six or more drinks on one occasion?: Never Total Score: 1 JALEN-7 AMB Questionnaire JALEN-7 Date JALEN - 7 assessed: 12/26/24 Feeling nervous, anxious, or on edge: 0 = Not at all Not being able to stop or control worryin = Not at all Worrying too much about different things: 0 = Not at all Trouble relaxin = Not at all Being so restless that it is hard to sit still: 0 = Not at all Becoming easily annoyed or irritable: 0 = Not at all Feeling afraid as if something awful might happen: 0 = Not at all Total JALEN-7 score (0-4 normal; 5-9 mild; 10-14 moderate; 15-21 severe): 0 Source: Developed by Drs. Griffin Guillermo, Joann Rice, Prem Ram and colleagues, with an educational melissa from [employer]. JALEN-7 Assessment Billing JALEN-7 Assessment Tool: JALEN-7 Assessment 38036 Physical exam (Primary Care) Vital Signs: Last Vital Signs Temp 98.2 F 12/26/24 10:38 Pulse 60 12/26/24 10:38 Resp 12 12/26/24 10:38 BP 106/76 12/26/24 10:38 Pulse Ox 97 12/26/24 10:38 Oxygen Delivery Method Room Air 12/26/24 10:38 BMI result Body Mass Index 38.4 Tobacco/Smoking Status: Tobacco use Status Tobacco use date assessed 12/26/24 12/26/24 10:41 Patient Tobacco Use Status Never used Tobacco 12/26/24 10:35 e-Cigarette/Vaping Use Never Used 12/26/24 10:35 PHQ-9: PHQ-9 Score PHQ-9: Total score 0 12/26/24 13:43 Depression Screening Interpretation: Negative Thrive Assessment: Date of Thrive Assessment Date Thrive assessed 12/26/24 12/26/24 13:43 Currently or been in a relationship where the following occur: No concerns reported Coding Level of Care Code Est Pt Prev Care 40-64y(82334) Diagnoses Routine general medical examination at a health care facility Z00.00 Hypothyroidism, unspecified type E03.9 Hypothyroidism type: unspecified Mixed hyperlipidemia E78.2 Essential hypertension I10 Additional Codes JALEN-7 Assessment Billing - JALEN-7 Assessment Tool: JALEN-7 Assessment 60835 ([id number]) PHQ-9 - 09206 - PHQ-9 Billing: Yes ([id number]) Assessment & Plan Assessment & Plan (1) Routine general medical examination at a health care facility: Code(s): Z00.00 - Encounter for general adult medical examination without abnormal findings Plan: hm reviewed. Labs reviewed (2) Hypothyroidism: Code(s): E03.9 - Hypothyroidism, unspecified Category: Medical Qualifiers: Hypothyroidism type: unspecified Qualified Code(s): E03.9 - Hypothyroidism, unspecified Plan: Continue current regimen (3) Mixed hyperlipidemia: Code(s): E78.2 - Mixed hyperlipidemia Category: Medical Plan: She is going to continue working on diet. He will recheck in 6 months. (4) Essential hypertension: Code(s): I10 - Essential (primary) hypertension Category: Medical Plan: WNL. Continue current regimen Orders: Orders Liver Panel Today E03.9 - Hypothyroidism, unspecified, E78.2 - Mixed hyperlipidemia, I10 - Essential (primary) hypertension TSH reflex Free T4 Today E03.9 - Hypothyroidism, unspecified, E78.2 - Mixed hyperlipidemia, I10 - Essential (primary) hypertension Basic Metabolic Panel Today E03.9 - Hypothyroidism, unspecified, E78.2 - Mixed hyperlipidemia, I10 - Essential (primary) hypertension Lipid Panel Today E03.9 - Hypothyroidism, unspecified, E78.2 - Mixed hyperlipidemia, I10 - Essential (primary) hypertension Complete Blood Count Auto Diff Today E03.9 - Hypothyroidism, unspecified, E78.2 - Mixed hyperlipidemia, I10 - Essential (primary) hypertension Referrals Ophthalmology Referral B02.39 - Other herpes zoster eye disease
[2024-12-26 10:38] VITALS: BP 106/76; PULSE 60; RESP 12; TEMP 36.8; O2SAT 97; BMI 38.4
--- OUTSIDE RECORDS SUMMARY | 2024-12-26 12:06 | XMS_ITS | Patient Health Record ---
Author Organization [facility] Address [address] [place] [address] Care Team Providers Care Casino Slot Supervisor Name Role Phone Eve Larsen Primary Care Provider Dwaine Galvan Jr Unavailable Allergies Allergen (clinical drug ingredient) Drug/Non Drug Allergy documented on EMR Reaction Allergy Type Onset Date Status Lisinopril Unknown Drug Allergy Active Reason For Referral No Information Medications Medication SIG (Take, Route, Frequency, Duration) Notes Start Date End Date Status Colyte with Flavor Packs 240 GM As direc kelvin Orally Over the specified time. for 1 day(s) Active Losartan Potassium 50 MG 1 tablet Orally Once a day Active hydroCHLOROthiazide 12.5 MG 1 capsule in the morning Orally Once a day Active Immunizations Vaccine Route Administration Date Status Comme nts Influenza Unknown 04/10/2018 Administered Social History Tobacco Use: Social History Observation Description Date Details (start date - stop date) Never Smoker NA - NA Tobacco Use/Smoking Question Answer Notes Patient is a nonsmoker Alcohol Screen Question Answer Notes Did you have a drink contain ing alcohol in the past year? Yes How often did you have a dri nk containing alcohol in the past year? Monthly or less (1 point) How many drinks did you have on a typical day when you were drinking in the past year? 1 or 2 drinks (0 point) How often did you have 6 or more drinks on one occasion in the past year? Never (0 point) Points 1 Interpretation Negative Problems Problem Type SNOMED Code ICD Code Onset Dates Problem Status W/U Status Risk Notes Problem [id number] Rectal bleeding (K62.5) Active confirmed Plan Of Treatment Future Test Test Name Order Date COLONOSCOPY 05/09/2018 Insurance Providers Payer Name Payer Address Payer Phone Subscriber Number Group Number Insured Name Patient Relationship to Insured Coverage Start Date Coverage End Date R [address] [address] [place] [address] [phone] [id number] BRITTANY JOSÉ Self - patient is the insured Medical (General) History Medical History History ICD Code hypertension Denies [place],DM,CVA,Lung disease,renal dise ase Surgical History Surgery Date(Month/Year) knee surgery-left 2015 skin graft on right foot 1990
== END 2024-12-26 11:10 | disposition home or self-care (01) ==
LOC: HO.HMCFM 10:25
PROVIDERS: PCP Physician Assistant; Visit Provider Physician Assistant
DX: Z00.00 Encounter for general adult medical examination without abnormal findings (principal); E03.9 Hypothyroidism, unspecified; E78.2 Mixed hyperlipidemia; I10 Essential (primary) hypertension

== ENCOUNTER → 2024-12-26 10:24 | Outpatient (BNVA) | payer OTHER, SELFPAY | PROVIDERS: PCP Physician Assistant; Visit Provider Physician Assistant | DX: Z00.00 Encounter for general adult medical examination without abnormal findings (principal); E03.9 Hypothyroidism, unspecified; E78.2 Mixed hyperlipidemia; I10 Essential (primary) hypertension | CPT/HCPCS: 96127 ==

== ENCOUNTER 2025-01-29 10:32 | Outpatient (REF) | payer OTHER, SELFPAY ==
--- OUTSIDE RECORDS SUMMARY | 2025-01-29 11:30 | XMS_ITS | Clinical Summary ---
Author Organization [facility] Address [address] [place] [id number] Phone Care Team Providers Care Pearl Hand Name Role Phone Eve Larsen MD Primary Care Provid er Self-Referred, Patient Unavailable Unavailab le Allergies Active Allergy Reactions Criticality Noted Date Comments Lisinopril Cough 01/25/2021 Medications losartan (COZAAR) 25 MG tablet 6 Active hydroCHLOROthia zide (HYDRODIURIL) 25 MG tablet Take 25 mg by mouth daily. 1 Active losartan (COZAAR) 50 MG tablet Take 50 mg by mouth daily. 1 Active mupirocin (BACTROBAN) 2 % ointment Apply topically 3 (three) times a day. Use on boil on leg for 7 days 22 g 3 Active mupirocin (BACTROBAN) 2 % ointment Apply topically daily. Apply inside to nostrils with a q-tip for 10 days. 22 g 3 Active triamcinolone acetonide 0.1 % cream Apply topically 2 (two) times a day. Use on rashes for 2 weeks at a time 80 g 1 4 Active Social History Tobacco Use Types Packs/Day Years Used Date Smoking Tobacco: Never Smokeless Tobacco: Never Alcohol Use Standard Drinks/Week Comments Not Currently 0 (1 standard drink = 0.6 oz pur e alcohol) Education Answer Date Recorded Are you interested in more education? Not on destinee e 10/29/2022 Are you concerned about learning? Not on file 10/29/2022 No 10/29/2022 No 10/29/2022 Digital Access Answer Date Recorded No 11/29/2022 No 11/29/2022 Reliable internet access at home? Not on file 11/29/2022 Device with a working camera? Not on file Comments Unknown Sex and Gender Information Value Date Recorded Sex Assigned at Female 02/02/2021 7:45 AM EDT Legal Sex Female 12:56 PM EDT Gender Identity Female 02/02/2021 7:45 AM EDT Sexual Orientation Straight 02/09/2021 8: 16 AM EDT Last Filed Vital Signs Vital Sign Reading Time Taken Comments Blood Pressure 124/82 02/05/2021 8:59 AM EDT Pulse 68 02/05/2021 8:59 AM EDT Temperature 36.9 C (98.4 F) 02/05/2021 7:57 AM EDT Respiratory Rate - - Oxygen Saturation - - Inhaled Oxygen Concentration - - Weight - - Height - - Body Mass Index - - Plan of Treatment Upcoming Encounters Date Type Department Care Team (Late st Contact Info) Description 10/13/2025 7:45 AM EDT Office Visit [facility] [address] [place] [phone] Macey Hill MD [address] [place] [id number] [email or web address] Health Maintenance Due Date Last Done Comments CREATININE LEVEL 1969 LIPID PANEL 1969 POTASSIUM LEVEL 1969 DEPRESSION SCREENING 1981 HEPATITIS C SCREENING 1987 HIV ONE-TIME SCREENING (18-65 YEARS) 1987 PAP SMEAR 1990 MAMMOGRAM 2009 COLOGUARD 2014 COLONOSCOPY 2014 COLORECTAL CANCER SCREENING 2014 FIT TEST 2014 FOBT 2014 SIGMOIDOSCOPY 2014 VIRTUAL COLONOSCOPY 2014 PNEUMOCOCCAL VACCINES (50+ years) (1 of 1 - PCV) 2019 COVID-19 VACCINE ( season) 2024 03/29/2022, 10/15/2021, 03/29/2021, Additional history exists Adult Td,Tdap Booster 02/07/2029 02/07/2019 SMOKING STATUS SCREENING (Once After 26 Yrs) Completed 02/05/2021 ZOSTER VACCINES Completed 10/15/2021, 05/23/2021 HEPATITIS A VACCINES Aged Out No long er eligible based on patient's age to complete this topic HIB VACCINES Aged Out No longer eligi ble based on patient's age to complete this topic MENINGOCOCCAL VACCINES (ACWY) Aged Out No longer eligible based on patient's age to complete this topic MENINGOCOCCAL VACCINES (B) Aged Out N o longer eligible based on patient's age to complete this topic Medical Devices Not on file Insurance [employer] Member Subscriber Plan / Payer (Ef fective 2019-Present) Name:Viral Woods Relation to Subscriber:Self Name:Viral Woods Payer ID:[id number] (NA) Type:PPO Address: [place] [id number] [employer] [address] [employer] Care Teams Pearl Hand Relationship Specialty Start Date End Date Eve Larsen MD [address] [place] [address] PCP - General Internal Medicine 12/28/20 Self-Referred, Patient Referring Physician 12/28/20 Additional Source Comments The information contained in this document represents components of the legal health record. It is not the complete legal health record.[facility]
--- OUTSIDE RECORDS SUMMARY | 2025-01-29 11:30 | XMS_ITS | Patient Health Record ---
Author Organization [facility] Address [address] [place] [address] Care Team Providers Care Tissue Recovery Technician Name Role Phone Eve Larsen Primary Care Provider Dwaine Galvan Jr Unavailable Allergies Allergen (clinical drug ingredient) Drug/Non Drug Allergy documented on EMR Reaction Allergy Type Onset Date Status lisinopril Lisinopril Unknown Drug Allergy Activ e Reason For Referral No Information Medications Medication [...] Problem Status W/U Status Risk Notes Problem [id number] Rectal bleeding (K62.5) Active confirmed Plan Of Treatment Future Test Test Name Order Date COLONOSCOPY 05/09/2018 Insurance Providers Payer Name Payer Address Payer Phone Subscriber Number Group Number Insured Name Patient Relationship to Insured Coverage Start Date Coverage End Date [facility] [address] [address] [place] [address] [phone] [id number] BRITTANY JOSÉ Self - patient is the insured Medical (General) History Medical History History ICD Code hypertension Denies [place],DM,CVA,Lung disease,renal dise ase Surgical History Surgery Date(Month/Year) knee surgery-left 2015 skin graft on right foot 1990
== END 2025-01-29 10:33 | disposition home or self-care (01) ==
LOC: HO.MAMMO 10:32
PROVIDERS: PCP Physician Assistant; Visit Provider Physician Assistant
DX: Z12.31 Encounter for screening mammogram for malignant neoplasm of breast (principal)
CPT/HCPCS: 77063; 77067

== ENCOUNTER → 2025-01-29 10:45 | Outpatient (BNV) | payer OTHER, SELFPAY | PROVIDERS: PCP Physician Assistant; Visit Provider Internal Medicine | DX: Z12.31 Encounter for screening mammogram for malignant neoplasm of breast (principal) | CPT/HCPCS: 77063; 77067 ==

== ENCOUNTER 2025-05-15 08:45 | Emergency (ER) | payer OTHER, SELFPAY ==
--- NOTE | ~2025-05-15 | XR_ITS ---
EXAMINATION: XR KNEE, RIGHT CLINICAL INFORMATION: gave out/R knee pain COMPARISON: None available. TECHNIQUE: Four views of the right knee. FINDINGS: Bone alignment is normal. No fracture or dislocation. Mild degenerative changes at the patellofemoral joint with small osteophytes. Joint spaces otherwise normal. Osteophyte of the quadriceps tendon insertion to the patella. Small joint effusion. XR/XR knee RT 4V IMPRESSION: Mild degenerative changes at the patellofemoral joint and small joint effusion. Electronically signed by: Iliana Simpson MD 05/15/2025 09:44 AM EST
[2025-05-15 08:51] VITALS: BP 158/72; PULSE 69; RESP 18; TEMP 36.4; O2SAT 98; BMI 37.6
--- NOTE | 2025-05-15 09:24 | ED.FALL ---
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 Denies fall, direct injury/trauma, head strike, LOC, symptoms prior to injury including lightheadedness/dizziness. Related Data Previous Rx's ?Medication ?Instructions ?Recorded hydrochlorothiazide 25 mg tablet 25 mg PO DAILY 90 days #90 tabs 07/12/24 clobetasol 0.05 % topical cream 1 appl topical BID 1 week #30 grams 10/31/24 losartan 50 mg tablet 75 mg (1.5 x 50 mg) PO DAILY 90 02/11/25 days #135 tabs levothyroxine 25 mcg tablet 25 mcg PO DAILY #90 tabs 04/08/25 Allergies Allergy/AdvReac Type Severity Reaction Status Date / Time lisinopril Allergy Intermediate dry cough Verified 05/15/25 08:55 Review of Systems Review of Systems: Yes all other systems are reviewed and are negative Constitutional: Constitutional: Reports as per [facility] Past Medical History Attestation statement: The following information was validated with the patient. Source: old records reviewed Medical History Morbid (severe) obesity due to excess calories COVID-19 Elevated TSH Obesity (BMI 30-39.9) Sweat gland carcinoma Neoplasm Mixed hyperlipidemia Essential hypertension Surgical History Status post Mohs surgery H/O arthroscopic knee surgery H/O skin graft Family History Family History Father Stroke Heart disease Mother Liver cancer Diabetes mellitus Maternal Aunt History of breast cancer Social History Social History Household Members: Significant Other Housing: House Alcohol intake: former Patient Tobacco Use Status: Never used Tobacco Smoked in Last 30 Days: No e-Cigarette/Vaping Use: Never Used Second Hand Smoke Exposure: No Use of substances other than those prescribed or required for medical reasons: No Advance Directives: No Advance Directives Information Provided: Yes service: No Current occupational status: employed 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[employer] Current occupational exposures/hazards: No Sexual orientation: Straight/Heterosexual Gender identity: Female Cognitive needs: No Hearing needs: No Vision needs: No Physical Exam Vital Signs: Vital Signs: Last Vital Signs Temp 97.5 F 05/15/25 08:51 Pulse 69 05/15/25 08:51 Resp 18 05/15/25 08:51 BP 158/72 H 05/15/25 08:51 Pulse Ox 98 05/15/25 08:51 O2 Del Method Room Air 05/15/25 08:51 BMI result Body Mass Index 37.6 Const: General: cooperative, healthy appearing and no acute distress Orientation/consciousness: patient oriented x3 Limitations: no limitations HEENT: Head: Yes normal to inspection and Yes atraumatic Ears: hearing grossly normal bilaterally General nose exam: Normal external nose present Face and sinus: Yes normal facial exam Eyes: General: appearance normal, both eyes and all related structures EOM: EOMs intact bilaterally Neck: Neck: Yes normal visual inspection and Yes no meningeal signs Resp: Effort & Inspection: normal respiratory effort and no respiratory distress Cardio: Rate: regular rate Skin: Rashes: no rashes Wounds: no wounds Neuro: General: patient oriented x3, tone normal and no meningeal signs Cranial nerves: Yes CN's II-XII intact bilaterally Gait exam (Neuro): Normal gait present Extrem: Other: Right knee with mild swelling. + Tenderness appreciated to posterior knee. Limited flexion secondary to pain. Extension intact. Neurovascularly intact distally. No erythema or warmth Course Course Course Narrative: XR knee RT 4V IMPRESSION: Mild degenerative changes at the patellofemoral joint and small joint effusion. >> hinged knee brace applied. Recommended close orthopedic /PCP follow-up Results discussed with patient including worrisome signs and symptoms and strict return precautions, and when to return to the emergency department. They verbalized understanding and feel safe for discharge at this time. Medications Administered Discontinued Medications Generic Name Dose Route Start Last Admin Trade Name Freq PRN Reason Stop Dose Admin Ibuprofen 800 mg 05/15/25 09:22 05/15/25 09:41 Ibuprofen 800 Mg Tablet PO 05/15/25 09:23 800 mg ONCE ONE Administration Procedures Orthopedic Splinting/Casting Injury #1: Side: right Lower Extremity Injury Location: knee Lower Extremity Immobilizer: knee immobilizer ( hinged knee brace) Other Orthopedic Equipment: crutches Medical Decision Making Medical Decision Making MDM Narrative: 55-year-old female with a past medical history of eczema, hypothyroid, HLD, HTN, presenting to the ED complaining of right knee pain s/p knee giving out 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 on exam vital signs stable, NAD, nontoxic appearing, physical exam as noted above. Concern for sprain vs tendon/meniscal injury. Lower suspicion for fracture. Unlikely DVT. No evidence of septic joint / arthritis Plan: X-ray, pain control Please refer to course for remaining clinical decision making, interpretation of labs/imaging results, and discussions with consultants and/or family members. Differential Diagnosis Differential Diagnoses: The differential diagnosis associated with the presentation includes As above Independent Interpretation I performed an independent interpretation of an: Plain X-Ray Radiology Impression Discussion of test interpretation with radiology: I have reviewed the radiologist's reading. External Record Review External record reviewed: Inpatient record, Office record, Outpatient record, Prior outpatient labs, Prior outpatient radiology, Primary care record and Outside ED record Tests considered The following testing was considered but not selected: As above Prescription Management I considered prescription management with: Pain Medication Social Determinants Patient?s care significantly limited by Social Determinants of Health including: Other Social Determinant of Health Discharge Plan Discharge Clinical Impression: Effusion of knee joint Patient Disposition: Home, Self-Care Instructions: Swollen Knee Joint (ED) Additional Instructions: your x-ray shows some arthritic changes and a small joint effusion Wear knee brace as needed for comfort and stability Ice and elevate Bear weight as tolerated You need to follow up with your primary care doctor and Orthopedics. If symptoms persist or worsen or area begins to look infected return to the emergency department Prescriptions: No Action hydrochlorothiazide 25 mg tablet 25 mg PO DAILY 90 Days Qty: 90 2RF losartan 50 mg tablet 75 mg PO DAILY 90 Days Qty: 135 0RF Rx Instructions: Take 1.5 Tablets Daily levothyroxine 25 mcg tablet 25 mcg PO DAILY Qty: 90 1RF clobetasol 0.05 % cream 1 appl topical BID 7 Days Qty: 30 0RF Rx Instructions: Do not use on hands face or genitals. Please wash your hands after applying this medication or use gloves Referrals: [facility] [Provider Group] - 1 week Dawn Coker PA-C [Primary Care Provider, Endocrinology] - 1 week Stand Alone Forms: Work/School Release Print Language: Mauritanian
--- OUTSIDE RECORDS SUMMARY | 2025-05-15 09:54 | XMS_ITS | Patient Health Record ---
Author Organization [facility] Address [address] [place] [phone] Care Team Providers Care Launchman Name Role Phone Eve Larsen Primary Care [...] As direc kelvin Orally Over the specified time.; Duration: 1 day(s) Active Losartan Potassium 50 MG [...] Problem Status W/U Status Risk Notes Problem Rectal bleeding (16404257) Rectal bleeding (K62.5) Active confirmed Plan Of Treatment Future Test Test Name Order Date COLONOSCOPY 05/09/2018 Insurance Providers Payer Name Payer Address Payer Phone Subscriber Number Group Number Insured Name Patient Relationship to Insured Coverage Start Date Coverage End Date [facility] [address] [address] [place] [address] [phone] [id number] BRITTANY JOSÉ Self - patient is the insured Medical (General) History Medical History History ICD Code hypertension Denies [place],DM,CVA,Lung disease,renal dise ase Surgical History Surgery Date(Month/Year) knee surgery-left 2014 skin graft on right foot 1990
[2025-05-15 10:26] VITALS: BP 139/72; PULSE 70; RESP 20; TEMP -17.7; TEMP 0; O2SAT 95
== END 2025-05-15 10:32 | disposition home or self-care (01) ==
PROVIDERS: Emergency Provider Emergency Medicine; PCP Physician Assistant
DX: M25.461 Effusion, right knee (principal)
CPT/HCPCS: 73564; 99284

== ENCOUNTER → 2025-05-15 09:22 | Outpatient (BNV) | payer OTHER, SELFPAY | PROVIDERS: Emergency Provider Emergency Medicine; PCP Physician Assistant; Visit Provider Radiology Diagnostic Radiology | DX: M25.561 Pain in right knee (principal) | CPT/HCPCS: 73564 ==

== ENCOUNTER 2025-05-16 10:29 | Outpatient (REF) | payer OTHER, SELFPAY ==
--- NOTE | ~2025-05-16 | XR_ITS ---
EXAMINATION: XR KNEE, RIGHT CLINICAL INFORMATION: M25.569 - Pain in unspecified knee COMPARISON: May 15, 2025 TECHNIQUE: AP bilateral standing, sunrise, and lateral views of the right knee. FINDINGS: There is mild narrowing of the medial joint space and mild narrowing of the lateral joint space. There are small tricompartmental marginal osteophytes. There is a joint effusion. Single view of the left knee demonstrates moderate narrowing of the lateral compartment and marginal osteophytes. XR/XR knee RT 3V IMPRESSION: Moderate osteoarthritis and joint effusion involving the right knee. Moderate left knee osteoarthritis. Electronically signed by: Jonny Oquendo MD 05/16/2025 11:43 AM EST
== END 2025-05-16 10:30 | disposition home or self-care (01) ==
LOC: HO.HOSX 10:29
PROVIDERS: Visit Provider Physician Assistant
DX: S83.91XA Sprain of unspecified site of right knee, initial encounter (principal); W18.49XA Other slipping, tripping and stumbling without falling, initial encounter; Y93.A1 Activity, exercise machines primarily for cardiorespiratory conditioning; Y92.39 Other specified sports and athletic area as the place of occurrence of the external cause
CPT/HCPCS: 73562

== ENCOUNTER 2025-05-16 11:23 | Outpatient (AMB) | payer OTHER, SELFPAY ==
--- NOTE | 2025-05-16 11:38 | MHC.OFFVIS ---
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 Patient reports pain started about 3 weeks ago. She explains the pain is on the posterior aspect of the knee. She describes it as a sharp shooting nerve pain . She explains her pain worsens with activity. She finds it difficult to go down stairs. Patient was seen at [facility] yesterday after taking a fall. She was given crutches and a knee brace. She is also taking Ibuprofen with some relief. She denies any other injuries or surgeries to the right knee. 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 Peggy todd is a 55-year-old female who presents to the office today for evaluation of a right knee injury that she sustained on 05/15/2025. She reports that roughly 3 weeks ago she was on the treadmill and she felt her right knee was ?tweaked . She was having some soreness but nothing substantial or requiring medication. Yesterday she was at work walking down the stairs when her right knee gave out on her. Immediately after falling she was unable to bear weight on the right lower extremity. She presented to the emergency department where x-rays were significant for a knee effusion. She was given crutches and a knee immobilizer and instructed to follow up with orthopedics outpatient for further evaluation and treatment. She continues to have difficulty bearing weight on the right lower extremity due to pain. She reports the pain is mainly located in the posterior aspect of the knee. [facility] Medical History Morbid (severe) obesity due to excess calories COVID-19 Elevated TSH Obesity (BMI 30-39.9) Sweat gland carcinoma Neoplasm Mixed hyperlipidemia Essential hypertension Surgical History Status post Mohs surgery H/O arthroscopic knee surgery H/O skin graft Family History Father Stroke Heart disease Mother Liver cancer Diabetes mellitus Maternal Aunt History of breast cancer Social History Household Members: Significant Other Housing: House Alcohol intake: former Patient Tobacco Use Status: Never used Tobacco e-Cigarette/Vaping Use: Never Used Second Hand Smoke Exposure: No service: No Current occupational status: employed 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 Tenderness to palpation in the posterior aspect of the knee. No tenderness to palpation medial and lateral joint lines. Unable to assess Judit's or anterior drawer due to patient guarding and pain. Range of motion 0-80 degrees. NVI. Psych Appearance: grossly normal Mental Status: mental status grossly normal Attitude: cooperative Assessment & Plan Assessment & Plan (1) Right knee sprain: Code(s): S83.91XA - Sprain of unspecified site of right knee, initial encounter Category: Medical (2) Osteoarthritis of right knee: Code(s): M17.11 - Unilateral primary osteoarthritis, right knee Category: Medical Plan Ms. Peggy todd is a 55-year-old female who presents to the office today for evaluation of a right knee injury that she sustained on 05/15/2025. She reports that roughly 3 weeks ago she was on the treadmill and she felt her right knee was ?tweaked . She was having some soreness but nothing substantial or requiring medication. Yesterday she was at work walking down the stairs when her right knee gave out on her. Immediately after falling she was unable to bear weight on the right lower extremity. She presented to the emergency department where x-rays were significant for a knee effusion. She was given crutches and a knee immobilizer and instructed to follow up with orthopedics outpatient for further evaluation and treatment. She continues to have difficulty bearing weight on the right lower extremity due to pain. She reports the pain is mainly located in the posterior aspect of the knee. While in the office today, we discussed the role of MRI imaging to further evaluate the integrity of the right knee and surrounding structures. I will order this stat in the office as the patient is unable to bear weight on the right lower extremity. She will continue using crutches. I provided her with a playmaker knee brace off the shelf. She will follow up once the MRI is obtained, sooner if needed. X-rays of the right knee which were obtained while in the office today and were reviewed by me, Diamond Valencia PA-C, revealed osteoarthritis. Orders: Orders XR knee RT 3V Today M25.569 - Pain in unspecified knee Coding Level of Care Code New Pt Level 4 (41830) Diagnoses Right knee sprain S83.91XA Osteoarthritis of right knee M17.11
[2025-05-16 11:41] VITALS: BMI 37.6
--- OUTSIDE RECORDS SUMMARY | 2025-05-16 17:32 | XMS_ITS | Clinical Summary ---
Author Organization [facility] Address [address] [place] [phone] Phone Care Team Providers Care Dragline Oiler Name Role Phone Eve Larsen MD Primary [...] EDT Office Visit [facility] [address] [place] [phone] Macey Hill MD [address] [place] [phone] [email or web address] Health Maintenance Due Date Last Done Comments CREATININE LEVEL 1969 LIPID PANEL 1969 POTASSIUM LEVEL 1969 DEPRESSION SCREENING 1981 HEPATITIS C SCREENING 1987 HIV ONE-TIME SCREENING (18-65 YEARS) 1987 PAP SMEAR 1990 MAMMOGRAM 2009 COLOGUARD 2014 COLONOSCOPY 2014 COLORECTAL CANCER SCREENING 2014 FIT TEST 2014 FOBT 2014 SIGMOIDOSCOPY 2014 VIRTUAL COLONOSCOPY 2014 PNEUMOCOCCAL VACCINES (50+ years) (1 of 1 - PCV) 2019 INFLUENZA VACCINE (#1) 2025 , 04/19/2023, 04/19/2022, Additional history exists COVID-19 VACCINE ( - 2024- season) 2025 03/29/2022, 10/15/2021, 03/29/2021, Additional history exists Adult Td,Tdap Booster 02/07/2029 02/07/2019 RSV VACCINE (1 - 1-dose 75+ series) 02/20/2044 SMOKING STATUS SCREENING (Once After 26 Yrs) Completed 02/05/2021 ZOSTER VACCINES Completed 10/15/2021, 05/23/2021 HEPATITIS A VACCINES Aged Out No long er eligible based on patient's age to complete this topic HIB VACCINES Aged Out No longer eligi ble based on patient's age to complete this topic IPV VACCINES Aged Out No longer eligi ble based on patient's age to complete this topic MENINGOCOCCAL VACCINES (ACWY) Aged Out No longer eligible based on patient's age to complete this topic MENINGOCOCCAL VACCINES (B) Aged Out N o longer eligible based on patient's age to complete this topic Medical Devices Not on file Insurance [facility] [employer] B[employer] B[employer] B[employer]EF[employer]MIN[employer]AT[employer] BENEF[employer]MIN[employer]ORS [employer]EF[employer]MIN[employer]RATORS [employer] Care Teams Dragline Oiler Relationship Specialty Start Date End Date Eve Larsen MD [address] [place] [address] PCP - General Internal Medicine 12/28/20 Self-Referred, Patient Referring Physician 12/28/20 Additional Source Comments The information contained in this document represents components of the legal health record. It is not the complete legal health record.[facility]
== END 2025-05-16 12:11 | disposition home or self-care (01) ==
LOC: HO.HOS 11:23
PROVIDERS: PCP Physician Assistant; Visit Provider Physician Assistant
DX: S83.91XA Sprain of unspecified site of right knee, initial encounter (principal); M17.11 Unilateral primary osteoarthritis, right knee
CPT/HCPCS: 99203

== ENCOUNTER → 2025-05-16 11:25 | Outpatient (BNV) | payer OTHER, SELFPAY | PROVIDERS: Visit Provider Radiology Diagnostic Radiology | DX: M25.461 Effusion, right knee (principal); M17.0 Bilateral primary osteoarthritis of knee | CPT/HCPCS: 73562 ==

== ENCOUNTER 2025-05-24 09:47 | Outpatient (REF) | payer OTHER, SELFPAY ==
--- NOTE | ~2025-05-24 | MR_ITS ---
CLINICAL HISTORY: M17.11 - Unilateral primary osteoarthritis, right knee MR right knee without gadolinium Comparison: None provided Findings: There is a central tear of the posterior root of the medial meniscus. There may be some localized bone marrow edema involving the medial posterior tibial plateau. There is no definite evidence of a displaced fracture here. There is mild thinning of the articular cartilage in the medial compartment. There is moderate chondromalacia patella involving the medial facet. There is a moderate joint effusion. No tears of the cruciate or collateral ligaments. No disruption of the patellar retinacula or iliotibial band. No tears of the quadriceps, patellar, popliteus, or flexor tendons. There are no meniscal tears. IMPRESSION: 1. Tear of the posterior root of the medial meniscus centrally. Localized bone bruising in this area. 2. Moderate joint effusion. 3. Moderate chondromalacia patella medial facet. 4. Thinning of the articular cartilage in the medial compartment. This document has been electronically signed by: Bear New MD on 05/24/2025 10:55:50
--- OUTSIDE RECORDS SUMMARY | 2025-05-24 09:51 | XMS_ITS | Clinical Summary ---
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 [address] [place] [phone] Macey Hill MD [address] [place] [phone] [email or web address] Health Maintenance Due Date Last Done [...] 04/19/2023, 04/19/2022, Additional history exists COVID-19 VACCINE (6 - 2024- season) 2025 03/29/2022, 10/15/2021, 03/29/2021, [...] topic Medical Devices Not on file Insurance [employer] Member Subscriber Plan / Payer ( fective 2019-Present) Name:Viral [place] Relation to Subscriber:Self Name:Hannahrosie Viral Payer ID:[id number] (NAIC) Type:PPO Address: [place] [id number] [employer] [place] [address] [employer] [place] [address] [employer] B[employer]EF[employer] AD[employer]AT[employer]MIN[employer]AT[employer] [place] [address] Care Teams Rag Production Worker Relationship Specialty Start Date End Date Eve Larsen MD [address] [place] [address] PCP - General Internal Medicine 12/28/20 Self-Referred, Patient Referring Physician 12/28/20 Additional Source Comments The information contained in this document represents components of the legal health record. It is not the complete legal health record.[facility]
--- OUTSIDE RECORDS SUMMARY | 2025-05-24 09:51 | XMS_ITS | Patient Health Record ---
Author Organization [facility] Address [address] [place] [phone] Care Team Providers Care Internet Manager Name Role Phone Eve Larsen Primary Care Provider Dwaine Galvan Jr Unavailable Allergies Allergen (clinical drug ingredient) Drug/Non Drug Allergy documented on EMR Reaction Allergy Type Onset Date Status lisinopril Lisinopril Unknown Drug Allergy Activ e Reason For Referral No Information Medications Medication SIG (Take, Route, Frequency, Duration) Notes Start Date End Date Status Colyte with Flavor Packs 240 GM Solution Reconstituted As directed Orally Over the specified time.; Duration: 1 day(s) Active Losartan Potassium 50 MG Tablet 1 tablet Orally Once a day Active hydroCHLOROthiazide 12.5 MG Capsule 1 capsule in the morning Orally Once a day Active Immunizations Vaccine Route Administration Date Status Comme nts Influenza Unknown 04/10/2018 Administered Social History Tobacco Use: Social History Observation Description Date Details (start date - stop date) Never Smoker NA - NA Social History Drugs/Alcohol: Social Info Question Answer Notes Alcohol Screen Did you have a drink containing alcohol in the past year? Yes How often did you have a drink containing alcohol in the past year? Monthly or less (1 point) How many drinks did you have on a typical day when you were drinking in the past year? 1 or 2 drinks (0 point) How often did you have 6 or more drinks on one occasion in the past year? 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 Problems Problem Type SNOMED Code ICD Code Onset Dates Problem Status W/U Status Risk Notes Problem Rectal bleeding (94593151) Rectal bleeding (K62.5) Active confirmed Plan Of Treatment Future Test Test Name Order Date COLONOSCOPY 05/09/2018 Insurance Providers Payer Name Payer Address Payer Phone Subscriber Number Group Number Insured Name Patient Relationship to Insured Coverage Start Date Coverage End Date [employer] [address] [address] [place] [address] [id number] BRITTANY JOSÉ Self - patient is the insured Medical (General) History Medical History History ICD Code hypertension Denies [place],DM,CVA,Lung disease,renal dise ase Surgical History Surgery Date(Month/Year) knee surgery-left 2014 skin graft on right foot 1990
== END 2025-05-24 09:48 | disposition home or self-care (01) ==
LOC: HO.MRI 09:47
PROVIDERS: PCP Physician Assistant; Visit Provider Physician Assistant
DX: S83.91XA Sprain of unspecified site of right knee, initial encounter (principal); M17.11 Unilateral primary osteoarthritis, right knee
CPT/HCPCS: 73721

== ENCOUNTER → 2025-05-24 09:55 | Outpatient (BNV) | payer OTHER, SELFPAY | PROVIDERS: PCP Physician Assistant; Visit Provider Radiology Diagnostic Radiology | DX: S80.01XA Contusion of right knee, initial encounter (principal); M25.461 Effusion, right knee; M22.41 Chondromalacia patellae, right knee | CPT/HCPCS: 73721 ==

== ENCOUNTER 2025-06-09 13:52 | Outpatient (AMB) | payer OTHER, SELFPAY ==
--- NOTE | 2025-06-09 13:59 | MHC.OFFVIS ---
Vital Signs 06/09/25 14:02 Height 4 ft 10 in Weight 180 lb BMI 37.6 Intake Visit Reasons: OV - Right Knee MRI Review Intake Note: Viral is a 55 year old female who presents today for a Right Knee MRI Review. She was last seen with Diamond where she reported an Injury on 05/15/25 while on the treadmill. Later while going down the stairs her knee gave out on her, resulting in a fall. She was unable to weight bear s/p fall. Allergies lisinopril Allergy (Intermediate, Verified 06/09/25 14:02) dry cough HPI HPI OV - Right Knee MRI Review: Details: Viral is a 55 year old female who presents today for a Right Knee MRI Review. She was last seen with Diamond where she reported an Injury on 05/15/25 while on the treadmill. Later while going down the stairs her knee gave out on her, resulting in a fall. She was unable to weight bear s/p fall. She feels like the pain is decreasing. She has discomfort more than anything PFSH Medical History Morbid (severe) obesity due to excess calories COVID-19 Elevated TSH Obesity (BMI 30-39.9) Sweat gland carcinoma Neoplasm Mixed hyperlipidemia Essential hypertension Surgical History Status post Mohs surgery H/O arthroscopic knee surgery H/O skin graft Family History Father Stroke Heart disease Mother Liver cancer Diabetes mellitus Maternal Aunt History of breast cancer Social History Household Members: Significant Other Housing: House Alcohol intake: former Patient Tobacco Use Status: Never used Tobacco e-Cigarette/Vaping Use: Never Used Second Hand Smoke Exposure: No service: No Current occupational status: employed 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 mildly positive medial Judit's but not impressive. Normal gait Vital Signs: BMI result Body Mass Index 37.6 Results Reviewed Results Reviewed: I personally reviewed the MR images. MPRESSION: 1. Tear of the posterior root of the medial meniscus centrally. Localized bone bruising in this area. 2. Moderate joint effusion. 3. Moderate chondromalacia patella medial facet. 4. Thinning of the articular cartilage in the medial compartment. Assessment & Plan Assessment & Plan (1) Osteoarthritis of right knee: Code(s): M17.11 - Unilateral primary osteoarthritis, right knee Category: Medical Plan: arthritic knee in the setting of root tear. We had a long discussion and I recommend physical therapy. I think her arthritis and age are contraindications to root repair. If she does not feel like she is improving we can always consider meniscectomy at this time (2) Degenerative tear of medial meniscus of right knee: Code(s): M23.203 - Derangement of unspecified medial meniscus due to old tear or injury, right knee Category: Medical Plan: Orders: Orders PT Evaluation and Treatment Today M17.11 - Unilateral primary osteoarthritis, right knee, M23.203 - Derangement of unspecified medial meniscus due to old tear or injury, right knee Coding Level of Care Code Est Pt Level 3 (27470) Diagnoses Osteoarthritis of right knee M17.11 Degenerative tear of medial meniscus of right knee M23.203
[2025-06-09 14:02] VITALS: BMI 37.6
--- OUTSIDE RECORDS SUMMARY | 2025-06-09 22:39 | XMS_ITS | Clinical Summary ---
Author Organization [facility] Address [address] [facility] [address] [place] [address] Phone Care Team Providers Care Administrative Analyst Name Role Phone Eve Larsen MD Primary [...] EDT Office Visit [facility] [address] [place] [phone] Macey Hill MD [address] [place] [phone] [email or web address] Health Maintenance Due Date Last Done [...] topic Medical Devices Not on file Insurance [email or web address] ADMINISTRATORS [email or web address]MIN[employer] ADMINISTRATORS [email or web address]MIN[employer] Member Subscriber Plan / Payer ( fective 2019-Present) Name:Viral Woods Relation to Subscriber:Self Name:Hannahrosie Viral Payer ID:[id number] (NAIC) Type:PPO Address: [place] [phone] [employer]EF[employer]MIN[employer] [address] [employer]EF[employer] [place] [address] [employer] BENEFITS ADMINISTRATORS Fetch MD ADMINISTRATORS [email or web address]MIN[employer]ORS Care Teams Administrative Analyst Relationship Specialty Start Date End Date Eve Larsen MD [address] [place] [address] PCP - General Internal Medicine 12/28/20 Self-Referred, Patient Referring Physician 12/28/20 Additional Source Comments The information contained in this document represents components of the legal health record. It is not the complete legal health record.[facility]
== END 2025-06-09 14:31 | disposition home or self-care (01) ==
LOC: HO.HOS 13:53
PROVIDERS: PCP Physician Assistant; Visit Provider Orthopaedic Surgery
DX: M17.11 Unilateral primary osteoarthritis, right knee (principal); M23.203 Derangement of unspecified medial meniscus due to old tear or injury, right knee
CPT/HCPCS: 99213

== ENCOUNTER → 2025-06-09 13:52 | Outpatient (BNVA) | payer OTHER, SELFPAY | PROVIDERS: PCP Physician Assistant; Visit Provider Orthopaedic Surgery | DX: M17.11 Unilateral primary osteoarthritis, right knee (principal); M23.203 Derangement of unspecified medial meniscus due to old tear or injury, right knee | CPT/HCPCS: 99212 ==

== ENCOUNTER 2025-06-11 06:14 | Outpatient (REF) | payer OTHER, SELFPAY ==
--- OUTSIDE RECORDS SUMMARY | 2025-06-11 06:17 | XMS_ITS | Patient Health Record ---
Author Organization [facility] Address [address] [place] [phone] Care Team Providers Care Parish Visitor Name Role Phone Eve Larsen Primary Care [...] W/U Status Risk Notes Problem Rectal bleeding ([id number]) Rectal bleeding (K62.5) Active confirmed Plan Of Treatment Future Test Test Name Order Date COLONOSCOPY 05/09/2018 Insurance Providers Payer Name Payer Address Payer Phone Subscriber Number Group Number Insured Name Patient Relationship to Insured Coverage Start Date Coverage End Date UMR [address] [address] [place] [address] [id number] BRITTANY JOSÉ Self - patient is the insured Medical (General) History Medical History History ICD Code hypertension Denies ID,DM,CVA,Lung disease,renal dise ase Surgical History Surgery Date(Month/Year) knee surgery-left 2014 skin graft on right foot 1990
--- OUTSIDE RECORDS SUMMARY | 2025-06-11 06:17 | XMS_ITS | Clinical Summary ---
Author Organization [facility] Address [address] [facility] [address] [place] [address] Phone Care Team Providers Care Graduate Internship Name Role Phone Eve Larsen MD Primary [...] EDT Office Visit [facility] [address] [place] [address] Macey Hill MD [address] [place] [phone] [email or web address] Health Maintenance Due Date Last Done Comments [...] topic Medical Devices Not on file Insurance [employer] ADMINISTRATORS [employer] ADMINISTRATORS [employer] BENEFITS ADMINISTRATORS [employer] ADMINISTRATORS Member Subscriber Plan / Payer ( fective 2019-Present) Name:Viral Woods Relation to Subscriber:Self Name:Hannahrosie Viral Payer ID:[id number] (NAIC) Type:PPO Address: [place] [phone] [employer] B[employer]EFITS ADMINISTRAT[place] [address] [employer]EF[employer] ADMIN[employer] [address] [employer] BENEF[employer] ADMINISTRATORS [employer] ADMINISTRATORS [employer] [place] [address] Care Teams Graduate Internship Relationship Specialty Start Date End Date Eve Larsen MD [address] [place] [address] PCP - General Internal Medicine 12/28/20 Self-Referred, Patient Referring Physician 12/28/20 Additional Source Comments The information contained in this document represents components of the legal health record. It is not the complete legal health record.[facility]
[2025-06-11 06:24] LABS: MANUAL DIFF FLAG NO
[2025-06-11 07:15] LABS: Hematocrit 44.2 % (37.0-47.0); Hemoglobin 14.6 g/dl (12.0-16.0); Imm Gran Abs Auto 0.02 X10*3/uL (0.00-0.03); Imm Gran Pct Auto 0.3 % (0.0-0.4); Lymphocytes Absolute Auto 2.7 X10*3/uL (1.2-4.9); Mean Corpuscular HGB Conc 33.0 g/dl (31.0-35.0); Mean Corpuscular Hemoglobin 27.9 pg (27.0-33.0); Mean Corpuscular Volume 84.5 fL (80.0-98.0); NRBC Abs Auto 0.000 X10*3/uL (0.0-0.012); NRBC Pct Auto 0.0 /100WBC (0.0-0.2); Platelet Count 300 X10*3/uL (160-400); Red Blood Count 5.23 X10*6/uL (4.20-5.50); White Blood Count 7.7 X10*3/uL (4.8-10.8)
[2025-06-11 07:50] LABS: Alanine Aminotransferase 21 U/L (0-31); Albumin Level 4.0 g/dL (3.5-5.0); Alkaline Phosphatase 60 U/L (39-117); Anion Gap 10 (12-20); Aspartate Amino Transferase 26 U/L (5-31); Blood Urea Nitrogen 13 mg/dL (9-16); Calcium 9.6 mg/dL (8.4-10.2); Carbon Dioxide 30 mmol/L (22-29); Chloride 105 mmol/L (96-108); Cholesterol 236 mg/dL (<200); Estimated Glomerular Filt Rate > 60; HDL Cholesterol 51 mg/dL (>40); Potassium 3.6 mmol/L (3.3-5.1); Sodium 141 mmol/L (135-145); Total Protein 7.3 g/dL (6.5-8.0); Triglycerides 174 mg/dL (<150)
== END 2025-06-11 06:15 ==
LOC: HO.LAB 06:14
PROVIDERS: PCP Physician Assistant; Visit Provider Physician Assistant
DX: E78.2 Mixed hyperlipidemia (principal); E03.9 Hypothyroidism, unspecified; I10 Essential (primary) hypertension
CPT/HCPCS: 36415; 80048; 80061; 80076; 84443; 85025

== ENCOUNTER 2025-07-02 14:05 | Outpatient (AMB) | payer OTHER, SELFPAY ==
--- NOTE | 2025-07-02 14:10 | MHC.PC.OV ---
Vital Signs 07/02/25 14:11 Height 4 ft 10 in Weight 182 lb 6 oz BMI 38.1 BP 116/84 Blood Pressure Location Lt brachial Position Sitting Respiration 14 Pulse 73 Pulse Source Pulse Oximeter Temp 97 F Temp Source Oral Intake Visit Reasons: bp cholesterol Intake Note: Follow up Advertising Columnist Required: No Allergies lisinopril Allergy (Intermediate, Verified 07/02/25 14:12) dry cough Medication List - Last Reconciled 07/02/25 by Dawn Coker PA-C clobetasol 0.05% 1 appl topical BID 1 week hydrochlorothiazide 25 mg PO DAILY 90 days levothyroxine 25 mcg PO DAILY losartan 75 mg (1.5 x 50 mg) PO DAILY 90 days Tobacco use date assessed: 07/02/25 Dental Screening Dental Screen Date: 12/26/24 HPI bp cholesterol HPI Details Patient is a 54-year-old female who presents today for a follow up. She has no acute concerns today. CV: She has history of hypertension her blood pressure today in the office is 116/84. She is currently on losartan 75 mg and hydrochlorothiazide 25 mg daily. Her last labs did show a persistently elevated cholesterol despite diet changes. Endo: On levothyroxine 25 mcg. Last TSH was WNL. 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 She is following with OBGYN Oncology. Mammo: Up-to-date Colonoscopy: Due in 5 years. 2028 Pap: S/p recent hysterectomy Bone density: Normal-2023 [facility] Medical History Morbid (severe) obesity due to excess calories COVID-19 Elevated TSH Obesity (BMI 30-39.9) Sweat gland carcinoma Neoplasm Mixed hyperlipidemia Essential hypertension Surgical History Status post Mohs surgery H/O arthroscopic knee surgery H/O skin graft Family History Father Stroke Heart disease Mother Liver cancer Diabetes mellitus Maternal Aunt History of breast cancer Social History Household Members: Significant Other Housing: House Alcohol intake: former Patient Tobacco Use Status: Never used Tobacco e-Cigarette/Vaping Use: Never Used Second Hand Smoke Exposure: No service: No Current occupational status: employed 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[employer] Current occupational exposures/hazards: No Sexual orientation: Straight/Heterosexual Gender identity: Female Cognitive needs: No Hearing needs: No Vision needs: No Female Reproductive History Menstrual Age of Menarche: 7 Questionnaire Thrive Questionnaire Date Thrive assessed: 12/26/24 I am a: Patient What is your living situation today?: I have a steady place to live Within the past 12 months, did the food you bought not last and you didn't have the money to get more?: Never true Within the past 12 months, did you worry whether your food would run out before you got money to buy more?: Never true Do you have trouble paying for medicines?: No Do you have trouble getting transportation to medical appointments?: No Do you have trouble paying your heating and electricity bill?: No Do you have trouble taking care of your child, family member or friend?: No Do you have trouble with day-to-day activities such as bathing, preparing meals, shopping, managing finances, etc.?: No Are you currently unemployed and looking for a job?: No Are you interested in more education?: I choose not to answer this question Currently or been in a relationship where the following occur: No concerns reported THRIVE Score: 0 AUDIT C Alcohol Use Questionnaire (AUDIT-C) 1. How often do you have a drink containing alcohol?: Never 3. How often do you have six or more drinks on one occasion?: Never Total Score: 0 JALEN-7 AMB Questionnaire JALEN-7 Date JALEN - 7 assessed: 12/26/24 Source: Developed by Drs. Griffin Guillermo, Joann Rice, Prem Ram and colleagues, with an educational melissa from [employer]. Physical exam (Primary Care) Vital Signs: Last Vital Signs Temp 97 F 07/02/25 14:11 Pulse 73 07/02/25 14:11 Resp 14 07/02/25 14:11 BP 116/84 07/02/25 14:11 BMI result Body Mass Index 38.1 Tobacco/Smoking Status: Tobacco use Status Tobacco use date assessed 07/02/25 07/02/25 14:14 Patient Tobacco Use Status Never used Tobacco 07/02/25 14:14 e-Cigarette/Vaping Use Never Used 07/02/25 14:14 Thrive Assessment: Date of Thrive Assessment Date Thrive assessed 12/26/24 07/02/25 14:14 Currently or been in a relationship where the following occur: No concerns reported Const Orientation/consciousness: patient oriented x3 HENMT Ears: hearing grossly normal bilaterally Neck Thyroid: Thyroid normal Lymphatic: no lymphadenopathy noted Resp Auscultation: clear to auscultation bilaterally Cardio Rate: regular rate Rhythm: regular rhythm Heart sounds: S1 normal heart sound present and S2 normal heart sound present Skin General skin exam: no rashes or lesions noted Neuro General: patient oriented x3, gait normal and no focal motor deficits Coding Level of Care Code Est Pt Level 4 (39276) Add On Problem Visit Only Diagnoses Mixed hyperlipidemia E78.2 Essential hypertension I10 Assessment & Plan Assessment & Plan (1) Mixed hyperlipidemia: Code(s): E78.2 - Mixed hyperlipidemia Category: Medical Plan: We will start Lipitor. Discussed risks and benefits and adverse effects of this medication. We discussed the risk of myalgias. She will let me know if she is unable to tolerate this or if she develops any abdominal pain, dark colored urine etc.. Advised that she could try Co Q10 with this as well. We will recheck lipids and LFTs in 8 weeks. (2) Essential hypertension: Code(s): I10 - Essential (primary) hypertension Category: Medical Plan: WNL. Continue current regimen Plan coq10 supplement atorvastatin 10 mg recheck labs in 8 weeks Orders: Orders Complete Blood Count Auto Diff 07/02/25 E78.2 - Mixed hyperlipidemia, I10 - Essential (primary) hypertension Comprehensive Cotter. Panel Fast 07/02/25 E78.2 - Mixed hyperlipidemia, I10 - Essential (primary) hypertension Lipid Panel 07/02/25 E78.2 - Mixed hyperlipidemia, I10 - Essential (primary) hypertension Medications: New atorvastatin (Lipitor) 10 mg PO BEDTIME 90 tabs 0RF
[2025-07-02 14:11] VITALS: BP 116/84; PULSE 73; RESP 14; TEMP 36.1; BMI 38.1
--- OUTSIDE RECORDS SUMMARY | 2025-07-02 15:21 | XMS_ITS | Patient Health Record ---
Author Organization [facility] Address [address] [place] [phone] Care Team Providers Care Returned Goods Sorter Name Role Phone Eve Larsen Primary Care [...] W/U Status Risk Notes Problem Rectal bleeding ([id number]) Rectal bleeding (K62.5) Active confirmed Plan Of Treatment Future Test Test Name Order Date COLONOSCOPY 05/09/2018 Insurance Providers Payer Name Payer Address Payer Phone Subscriber Number Group Number Insured Name Patient Relationship to Insured Coverage Start Date Coverage End Date UMR [address] [address] [place] [address] [id number] BRITTANY JOSÉ Self - patient is the insured Medical (General) History Medical History History ICD Code hypertension Denies HI,DM,CVA,Lung disease,renal dise ase Surgical History Surgery Date(Month/Year) knee surgery-left 2014 skin graft on right foot 1990
--- OUTSIDE RECORDS SUMMARY | 2025-07-02 15:21 | XMS_ITS | Clinical Summary ---
Author Organization [facility] Address [address] [facility] [address] [place] [address] Phone Care Team Providers Care Underbaster Name Role Phone Eve Larsen MD Primary [...] EDT Office Visit [facility] [address] [place] [address] Macey Hill MD [address] [place] [phone] [email or web address] Health Maintenance Due Date Last [...] topic Medical Devices Not on file Insurance [employer] ADMINISTRATORS [employer] ADMINISTRATORS [email or web address]ENEF[employer] ADMINISTRATORS [employer] ADMINISTRATORS Member Subscriber Plan / Payer ( fective 2019-Present) Name:Viral Woods Relation to Subscriber:Self Name:Hannahrosie Viral Payer ID:[id number] (NAIC) Type:PPO Address: [place] [phone] [email or web address] BENEF[employer] ADMINISTR[employer] [address] [employer]ENEFITS [employer]MIN[employer] [address] [place] [address] [employer] BENEFITS ADMINISTRATORS [employer] ADMINISTRATORS [employer] ADMINIST[employer]ATORS Care Teams Underbaster Relationship Specialty Start Date End Date Eve Larsen MD [address] [place] [address] PCP - General Internal Medicine 12/28/20 Self-Referred, Patient Referring Physician 12/28/20 Additional Source Comments The information contained in this document represents components of the legal health record. It is not the complete legal health record.[facility]
== END 2025-07-02 14:32 | disposition home or self-care (01) ==
LOC: HO.HMCFM 14:06
PROVIDERS: PCP Physician Assistant; Visit Provider Physician Assistant
DX: E78.2 Mixed hyperlipidemia (principal); I10 Essential (primary) hypertension